=== PATIENT | female | born 1940 | race Caucasian/White ===

== ENCOUNTER 2024-10-04 10:00 | Inpatient (IN) | payer MEDICARE, SELFPAY ==
[2024-10-02 23:00] VITALS: BP 164/110
--- NOTE | 2024-10-02 23:05 | ED.CVA ---
History of Present Illness
General
Chief Complaint: CVA/TIA Symptoms
Source: patient and ambulance crew
Exam Limitations: none
Time Seen by Provider: 10/02/24 22:59
Nursing documentation reviewed up to this point in time: agreed with
Onset of Stroke Symptoms
Onset of symptoms known: Yes
Date of onset of symptoms: 10/02/24
Time of onset of symptoms: 22:00
History of Present Illness
History of Present Illness:
84 female prehospital stroke alert, she has had some indigestion for about 2 weeks, tonight watching TV at 10 PM had acute onset of right arm numbness and weakness with trouble getting her words out EMS was called found her hypertensive with
improved symptoms she states her symptoms as far as her slurred speech and arm weakness lasted about 10 or 15 minutes, when I evaluated her she clear speech moving all extremities clear mental status
Past History
Past History
ED Past Medical History: Hypothyroidism and Other (Hives)
ED Past Surgical History: Gynecological
Social History
Tobacco: Non-smoker
Personal:
Living: with family
Review of Systems
Review of Systems
All Other Systems: Not applicable
Musculoskeletal: Reports back pain
Neurological: Reports weakness, numbness and other (Speech abnormality)
Psychiatric: Reports no symptoms
Phy Exam
Physical Exam
Physical Exam:
Physical Exam
General: 84 female looks uncomfortable with normal mental status clear speech
Neck: No tongue bite no jaw
Heart: s1/s2 regular rate and rhythm, no murmur. equal radial pulses.
Lungs: no acute respiratory distress. clear bilaterally
Abdomen: Regular
Neuro: alert and oriented. no focal neurological deficits
Skin: no rash
Psychiatric: well kept. interactive and cooperative
Extremities: no edema.
Course
Orders/Labs/Results
Orders:
Orders
10/02/24 23:00
EKG [Electrocardiogram (*1)] Urgent
Reason for Study: TIA/Stroke
Electrocardiogram (*1) Stat
Reason for Study: Other
Other Reason for Exam: neuro symptoms
CT HEAD STROKE ALERT W/o Cont Urgent
Comment:
Reason For Exam: aphasia
CT HEAD/NECK ANG STROKE ALERT Urgent
Comment:
Reason For Exam: rirhg rarm apahsia
Bedside Glucose- Treatment ONCE
Cardiac Monitoring- Treatment ONCE
EKG- Treatment ONCE
EKG- Treatment ONCE
10/02/24 23:04
Complete Blood Count/With Diff Urgent
Comprehensive Metabolic Panel Urgent
Erythrocyte Sed Rate Urgent
PTT Urgent
Prothrombin Time Urgent
Troponin I Urgent
10/02/24 23:09
CT Chest Angio W/wo Iv Contras Urgent
Comment:
Reason For Exam: pian stroke like symptoms
10/02/24 23:39
Urinalysis Reflex To Culture Urgent
Date Specimen was Collected: 10/02/24
Time Specimen was Collected: 23:39
10/02/24 23:42
Labetalol HCl [Trandate] 20 mg IV NOW STA
Abnormal Lab Results
10/02/24
23:04
RBC 4.01 L 10^6/uL
(4.20-5.40)
MCV 102.7 H fL
(81.0-99.0)
MCH 35.4 H pg
(27.0-31.0)
Sodium 146 H mmol/L
(135-145)
BUN 20 H mg/dl
(7-17)
Glucose 123 H mg/dl
(70-99)
POC Glucose 111 H mg/dl
(70-99)
10/02/24 23:04
10/02/24 23:04
Vital Signs
Initial and Last Documented VS:
Initial Vital Signs
Temp Pulse Resp BP Pulse Ox
97.9 F 83 24 164/110 98
10/02/24 23:00 10/02/24 23:00 10/02/24 23:00 10/02/24 23:00 10/02/24 23:00
Last Documented Vital Signs
Temp Pulse Resp BP Pulse Ox
97.9 F 102 24 164/110 98
10/02/24 23:00 10/02/24 23:30 10/02/24 23:30 10/02/24 23:06 10/02/24 23:30
MDM/Problems Addressed
Differential Diagnosis Includes:
TIA CVA intracerebral hemorrhage hypertensive urgency thoracic dissection
MDM/Problems Addressed:
Strokelike symptoms
*Radiology
Radiology exam reviewed: other (Verbal report from vision)
*Pulse Oximetry
Patient hypoxic: no
*EKG
Interpreted by ED Provider?: Yes
Interpretation: normal
Comparison EKG: no comparison EKG present
Heart Rate: 78
Rate: normal
Rhythm: sinus
Ischemia: no ischemia
*Wood Turning Lathe Operator Interpretation
Rate: normal
Interpretation: normal
Heart Rate: 78
Rhythm: sinus
*Critical Care Note
Total Time (30-74mins, 75-104mins- exclusive of procedures): 30
Update Note
Update Note:
Update did not appear to be lytic candidate at this time due to had a stroke score of 0 she has had some subacute indigestion back pain, then acute strokelike symptoms, will check CT angio of the head neck and chest,
CRITICAL CARE STATEMENT: A total of 40 minutes of critical care time was provided for this patient. This includes management of unstable vital signs, evaluation of the patient at bedside, reviewing the patient's pertinent medical records discussion
with EMS providers and patient's family in addition to discussion with consultants, review of old EKGs and review of pertinent medical records. This time with separate from time utilized to perform the aforementioned documented procedures
1145 patient speech is clear, blood pressure is up
Will start labetalol
ED Attending Note
-
Portions of this chart may have been created with voice recognition software.� Occasional wrong word or��sound alike� substitutions may have occurred due to the inherent limitations of voice recognition software.
Discharge Plan
Departure
Patient Disposition: Admit
Date of Disposition: 10/02/24
Time of Disposition: 23:46
Admit to: Telemetry
Presentation/result/management discussed w/ accepting MD/DO: Hospitalist
Patient with high blood pressure during this ER visit?: Yes
Condition: Fair
Covid-19: Not Applicable
Discharge Problem:
Hypertensive urgency, Brain TIA
Prescriptions:
No Action
Levothyroxine Sodium
1 tab PO DAILY AT 0700
Discharge Date and Time
Print Language: NEPALI
[2024-10-02 23:06] VITALS: BP 164/110
[2024-10-02 23:06] LABS: Glucose - Point of Care 111 mg/dl (70-99)
[2024-10-02 23:07] VITALS: BMI 29.0
[2024-10-02 23:16] LABS: % Basophils 0.3 % (0-2); % Eosinophils 1.8 % (0-6); % Immature Granulocytes 0.3 % (0-0.5); % Lymphocytes 25.9 % (20.5-51.1); % Monocytes 6.6 % (1.7-9.3); % Neutrophils 65.1 % (42.2-75.2); Absolute Eosinophils 0.1 10^3/uL (0-0.7); Absolute Lymphocytes 1.6 10^3/uL (1.2-3.4); Absolute Monocytes 0.4 10^3/uL (0.1-0.6); Hematocrit 41.2 % (37.0-47.0); Hemoglobin 14.2 g/dL (12.0-16.0); Mean Corp Hgb Conc. 34.5 g/dL (33.0-37.0); Mean Corpuscular Hgb 35.4 pg (27.0-31.0); Mean Corpuscular Volume 102.7 fL (81.0-99.0); Mean Platelet Volume 9.3 fL (7.4-10.4); Nucleated Red Blood Cells % 0 %; Platelet Count 191 10^3/uL (130-400); Red Blood Cell Count 4.01 10^6/uL (4.20-5.40); Red Cell Dist. Width 13.9 % (11.5-14.5); White Blood Cell Count 6.1 10^3/uL (4.8-10.8)
[2024-10-02 23:25] LABS: INR 0.89; PT 12.3 Sec (11.4-14.6)
[2024-10-02 23:26] LABS: APTT 27.6 Sec (23.4-35.0)
[2024-10-02 23:36] LABS: ALT (SGPT) 25 U/L (0-35); AST (SGOT) 31 U/L (14-36); Albumin 4.8 g/dl (3.5-5.0); Alkaline Phosphatase 82 U/L (38-126); Blood Urea Nitrogen 20 mg/dl (7-17); Calcium 9.9 mg/dl (8.4-10.2); Carbon Dioxide 26 mmol/L (22-30); Chloride 106 mmol/L (98-107); Estimated Creatinine Clearance 49 ml/min; Glucose 123 mg/dl (70-99); Sodium 146 mmol/L (135-145); Total Bilirubin 0.9 mg/dl (0.2-1.3); eGFR > 60.00
[2024-10-02 23:40] LABS: Troponin I 0.015 ng/ml
[2024-10-02 23:51] LABS: Urine Albumin Negative (Neg - Trace); Urine Bilirubin Negative (Negative); Urine Character Clear (Clear); Urine Color Yellow; Urine Glucose Negative (Negative); Urine Ketone Negative (Negative); Urine Leukocyte 1+ (Negative); Urine Nitrite Negative (Negative); Urine Occult Blood Negative (Negative); Urine Specific Gravity 1.005 (<1.030); Urine Urobilinogen Negative (Neg - 1+)
[2024-10-02 23:55] LABS: Erythrocyte Sed Rate 24 mm/hour (0-20)
[2024-10-03] VITALS (9 sets, daily range): BP systolic 118–191; BP diastolic 61–96; BMI 28.2
[2024-10-03] MEDS: TRANDATE 20 MG IV (00:19)
[2024-10-03 00:25] LABS: Urine Bacteria Many (Negative); Urine Red Blood Cell 0-2 /HPF (0-2); Urine Squamous Cell >30 /LPF (Few)
[2024-10-03 00:26] LABS: Urine Urothelial Cell 16-20 /LPF (FEW)
--- NOTE | 2024-10-03 00:53 | HPS.HSE ---
Family Physician
-
Family Physician: Josr Perez MD
Chief Complaint
-
Right hand weakness and numbness
History of Present Illness
This is an 84-year-old was generally healthy and active with past medical history of hypothyroid and hypertension presenting to the emergency department with an acute episode of transient right weakness and numbness.
Patient reported that she had been in usual state of health except for about a 3-week history of swallowing difficulties. She was supposed to see PMD on Friday but was found not available and she was planning a follow-up visit next week for this.
Today while sitting down the patient reported that she suddenly felt numb in her right arm and she could not move it normally. She had garbled speech at that time and seemed confused. This resolved after about 10 minutes according to patient and
spouse. She still felt somewhat uneasy and uncomfortable so EMS was called when EMS arrived she was seen in normal state with no focal deficits. She complained of some headache. She states she still has mild blurry vision on the right visual
field.
While discussing with patient she mentioned that she was having chest pain at that time. Was substernal and she had difficulty breathing. She never had this kind of symptom before but she stated that due to the indigestion and difficulty
swallowing she has been having some trouble breathing. Denies pleuritic symptoms. Denies any cough fevers or chills. She denies any wheezing.
Patient reports difficulty with swallowing solids and liquids. She feels that the material gets stuck in her upper chest. She has no vomiting. She has no nausea. She reports that she is not aspirating. She does not cough up the food. It
appears to cause pain when it is stuck in the chest. She denies any prior history of any kind of malignancy. She denies any radiation. She denies history of atopy. She denies GERD. She denies any sensation of acid reflux or weakness in the back
of her throat. She has no postnasal drip.
In the emergency department the patient was hypertensive to 160s over 110s to 180s over 100, pulse ranged from 80s to 100 oxygen saturation was 96%. She was intermittently tachypneic but otherwise had a respiratory rate in the 10-15 range. ECG
shows a sinus rhythm at 81 with no changes. ECG repeated during chest pain was also completely normal and nonischemic. Troponin was 0.015. CBC was unremarkable. Electrolytes BUN/creatinine were also within normal limits. Patient had a CT of the
head as well as a CT angio which showed no acute changes, no bleed, mass effect, mass, dissection. CT Angio of neck shows a hypervascular mass in the right carotid space measuring 3.4 x 2.4 x 4 cm splaying the carotid bulb referral likely
reflecting carotid body tumor/paraganglioma. Associated marked vascularity throughout the carotid space with localized mass effect on right parapharyngeal space and narrowing of adjacent airway. There is moderate atheromatous disease of the left
carotid bulb and proximal internal carotid artery. Greater than 70% narrowing at origin of left internal carotid artery. The CT angiogram of the chest shows no mass, infiltrates, consolidation or PE.
Medical History
Past Medical History
Past Medical History: Reports HTN and Hypercholesterolemia (diet controlled)
Past Surgical History: Reports None
Social History
Tobacco: Non-smoker
Alcohol: None
Drug: None
Personal:
Living: With Family
Employment: Not Employed
Family History
Family History: Not pertinent
Allergies / Home Medications
Allergies reflects when Allergies were last updated in [employer].
Home Medications with original date entered in [employer]
Allergy/Medication List:
Allergies
Allergy/AdvReac Type Severity Reaction Status Date / Time
No Known Allergies Allergy Verified 10/02/24 23:56
Home Medications
Levothyroxine Sodium 1 tab PO DAILY AT 0700 09/11/19
losartan 50 mg tablet 50 mg PO DAILY 10/03/24
Review of Systems
-
History Source: Patient
Constitutional: Reports No Symptoms
EENT: Reports Other (Dysphagia)
Respiratory: Reports No Symptoms
Cardiac: Reports Chest Pain
Abdomen/GI: Reports No Symptoms
: Reports No Symptoms
Musculoskeletal: Reports No Symptoms
Skin: Reports No Symptoms
Neurological: Reports No Symptoms
Endocrine: Reports No Symptoms
Hematologic/Lymphatic: Reports No Symptoms
Psych: Reports No Symptoms
Physical Exam
Vital Signs
Vital Signs
Temp Pulse Resp BP Pulse Ox
97.9 F 69 26 177/83 97
10/02/24 23:00 10/03/24 00:45 10/03/24 00:45 10/03/24 00:28 10/03/24 00:15
Physical Exam
General: Well Developed, Well Nourished and Conversant
HEENT: NormoCephalic, Anicteric, Moist mucous membranes, Atraumatic, PERRLA, No Ptosis, Nose Appears Normal and Neck Nontender
Respiratory: Clear
Cardiac: S1/S2 and Regular Rhythm
Breast: Deferred by me
GI: Soft
Rectal: Brown
Genito-urinary: No costovertebral tender
Musculoskeletal: No Clubbing, No Cyanosis and No Edema
Skin: Warm
Neuro: AO x 3, No Motor Deficits, Cranial Nerves Intact and No Sensory Deficits
Hematologic/Lymphatic: No Lymphadenopathy
Psych: Calm
Laboratory Results
-
10/02/24 23:04
10/02/24 23:04
Laboratory Results
PT 12.3 Sec (11.4-14.6) 10/02/24 23:04
INR 0.89 10/02/24 23:04
APTT 27.6 Sec (23.4-35.0) 10/02/24 23:04
Total Bilirubin 0.9 mg/dl (0.2-1.3) 10/02/24 23:04
AST 31 U/L (14-36) 10/02/24 23:04
ALT 25 U/L (0-35) 10/02/24 23:04
Alkaline Phosphatase 82 U/L (38-126) 10/02/24 23:04
Troponin I 0.015 ng/ml 10/02/24 23:04
Data Reviewed
-
CT Scan: Report Reviewed by me
Medical Tests (Nuc Med, Echo, EKG etc): Image Personally Visualized and interpreted
Lab Data: Labs Reviewed by me
Old Records: Reviewed
Impression/Plan
-
IMPRESSION:
84-year-old with history of hypothyroid and hypertension presents to the emergency department with a transient episode of right arm weakness and numbness lasting about 10 minutes and completely resolved. She reports several weeks of difficulty
swallowing without chest pain or reflux symptoms but thought she had indigestion. NIHSS equals 0 at this time. She has no other focal deficits. She complains of a mild headache. She is quite hypertensive to the 180s systolic. Complains of mild
chest pressure with negative ECG and troponin. 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
airspace.
PLAN:
1. TIA/CVA - She has transient focal neurological deficit fitting TIA. She has some atherosclerotic disease on the left internal carotid as well as a right carotid paraganglioma. Cannot rule out catecholamin effect versus atherosclerosis. Given
she is symptom free would rather gather experts before starting a specific course of action.
- admit to telemetry
- labetolol prn for bp control
- mri in am to rule out a small stroke
- cardiovascular panel, holding off on aspirin for now pending neurology eval
- echo
2. 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
including dysphagia, sudden anxiety and hypertensive episode. The CT scan appears to be highly diagnostic and patient will need screening for mets, genetics screening, functionality and multi-modal intervention perhaps at outside institution
- assuming active episode, will obtain plasma and urine catecholamines and metanephrines
- Vascular surgery consult, may need neurosurgery
- endocrine consult for evaluation of catecholamine-secretion
- neurology consult
- consider oncology consult for staging if necessary per other consultants
- upper gi series for swallowing
3. Chest pain - Atypical. Negative PE, negative troponin, negative ECG. Possibly related to uncontrolled BP
- trend troponin for now
- analgesics
DVT PPX - lovenox sq
Code Status - full code
[2024-10-03 01:38] LABS: Glucose - Point of Care 121 mg/dl (70-99)
[2024-10-03 03:18] LABS: Troponin I 0.093 ng/ml
[2024-10-03 03:33] LABS: D-Dimer 0.46 ug/mlFEU (0.00-0.50)
[2024-10-03] MEDS: SYNTHROID 50 MCG PO (05:52)
[2024-10-03 06:51] LABS: Troponin I 0.116 ng/ml
[2024-10-03 06:55] LABS: HDL Cholesterol 67 mg/dl; LDL Cholesterol, Calculated 188 mg/dl; Total Cholesterol 274 mg/dl (50-199); Triglyceride 99 mg/dl (10-149); Very Low Density Lipoprotein 19 mg/dl (0-30)
[2024-10-03 07:26] LABS: TSH Reflex To Free T4 2.65 uIU/ml (0.47-4.68)
--- NOTE | 2024-10-03 08:24 | CON.NEURO ---
Neuro Assessment/Plan
Assessment
CT and CTA IMPRESSION:
1). Moderate partially calcific atherosclerotic plaque in the left carotid bifurcation is associated with approximately 65% stenosis of the left internal carotid artery at its origin and there is an approximately 70% stenosis of the M1 segment of
the left middle cerebral artery. These findings are associated with diminished flow in the M2 and M3 branches of the left middle cerebral artery when compared with the right.
2). There is 3.9 cm in maximal diameter hypervascular mass in the right carotid and parapharyngeal spaces most consistent with carotid body tumor
3). There is 3.3 cm partially calcified meningioma over the medial right parietal convexity and 1 cm partially calcified meningioma in the inferolateral right temporal lobe
Acute onset right arm send numbness with associated aphasia
Differential diagnosis includes TIA/stroke, hypertensive encephalopathy, symptomatic left internal carotid stenosis
Plan
Start ASA 81 mg by mouth due to likely acute onset stroke
Start clopidogrel 75 mg by mouth due to likely acute onset stroke, consider discontinuance after 21 days from neurological perspective
Agree with vascular surgery consultation surgical intervention of the left internal carotid artery as a symptomatic finding; may require right internal carotid artery procedure as per their decision
Initiate atorvastatin 80 mg daily, goal LDL less than 70
Monitor meningioma, unlikely to require neurosurgical intervention
Will follow peripherally.
Consultation
Order
Date of Consultation: 10/03/24
Requesting Provider: Hospitalists
Reason for Consult: Stroke alert
Subjective/Objective
Subjective Data
Date of Service: October 03, 2024
Right-Handed
'I think I had a stroke.'
Difficulty with pressure in chest for the past 2 weeks attributed with swallowing and feeling that food was stuck in her chest. Otherwise, patient has not had symptoms prior to last evening.
Patient presented to this hospital as a prehospital stroke alert last evening due to acute onset right hand and distal arm weakness with associated tremor. The patient also had an abrupt change with simultaneous gibberish, repeated, and unclear
speech. All symptoms seem to have resolved after approximately 15 minutes. No prior events. No alternative side or leg involvement. The patient current that her symptoms have improved without total resolution of right hand weakness.
Objective Data
Vital Signs
Temp Pulse Resp BP Pulse Ox
36.7 C 69 18 143/69 93
10/03/24 07:54 10/03/24 07:54 10/03/24 07:54 10/03/24 07:54 10/03/24 07:54
Lab Results
10/02/24 23:04
10/02/24 23:04
PT 12.3 Sec (11.4-14.6) 10/02/24 23:04
INR 0.89 10/02/24 23:04
APTT 27.6 Sec (23.4-35.0) 10/02/24 23:04
Sodium 146 mmol/L (135-145) H 10/02/24 23:04
Potassium 4.0 mmol/L (3.5-5.1) 10/02/24 23:04
BUN 20 mg/dl (7-17) H 10/02/24 23:04
Glucose 123 mg/dl (70-99) H 10/02/24 23:04
Calcium 9.9 mg/dl (8.4-10.2) 10/02/24 23:04
LDL Cholesterol, Calc 188 mg/dl 10/03/24 06:19
Patient Allergies
No Known Allergies Allergy (Verified 10/02/24 23:56)
CVA Assessment
Onset of Stroke Symptoms
Onset of symptoms known: Yes
Date of onset of symptoms: 10/02/24
Time of onset of symptoms: 21:00
Time pt last seen normal is known: Yes
Date last time pt seen normal: 10/02/24
Time last time pt seen normal: 21:00
NIH Stroke Score
Level of Consciousness: 0 - Alert
LOC Questions: 0-Answers both correctly
LOC Commands: 0-Performs both correctly
Best Horizontal Gaze: 0-Normal
Visual Hernandez: 0=Normal, no visual loss
Facial Palsy: 0=Normal, symmetrical
Motor - Right Arm: 1=Drift < 10 seconds
Motor - Left Arm: 0=No drift 10 seconds
Motor - Right Le-No drift 5 seconds
Motor - Left Le-No drift 5 seconds
Limb Ataxia: 0-Absent
Sensation: 0-Normal
Best Language: 0-No aphasia
Dysarthria: 0-Normal
Extinction and Inattention: 0-No abnormality
Total Score:: 1
Tenecteplase Contraindications
Inclusion and Exclusion criteria reviewed: Yes
IAT Contraindications: ASPECTS < 6
Review of Systems
-
History Source: Patient
All other systems: Reviewed and negative
Constitutional: Negative Weakness
EENT: Blurry Vision (on the right) and Swallowing Difficulty; Negative Decreased Vision
Respiratory: Negative Trouble Breathing
Cardiac: Negative Chest Pain
Abdomen/GI: Negative Incontinence of Stool
Genitourinary: Negative Incontinence
Musculoskeletal: Back Pain (chronic); Negative Neck Pain
Neuro: Headache (since 20 hours ago); Negative Dizzy
Physical Exam
-
General: No Apparent Distress and Appears Stated Age
Eyes: OU Absent Papilledema, Round OU, [place] Conjunctivae and No Ptosis
HEENT: Anicteric and Moist Mucous Membranes
Neck: Full Range of Motion
Respiratory: No Dyspnea
Cardiac: No JVD
GI: Non-distended
Skin: Unremarkable
Extremities: No Clubbing, No Cyanosis and No Edema
Psych: Negative Intact Judgement/Insight
Extended Neurological Exam
Mood & Affect: Mood Unremarkable and Affect Unremarkable
Attention Span & Concentration: Awake, Alert, Interactive and No Difficulty with 2 Step Request
Memory: Unremarkable
Tremor: Hand Tremor Absent and Head Tremor Absent
Speech: Quality Unremarkable and Quantity Unremarkable
Cranial Nerve II: Left Eye: Pupillary Reactivity Unremarkable, Pupillary Size Unremarkable and Visual Hernandez Intact
Cranial Nerve II: Right Eye: Pupillary Reactivity Unremarkable, Pupillary Size Unremarkable and Visual Hernandez Intact
Cranial Nerves III, IV, : Extraocular Movement: Extraocular Movement Full in all Directions
Cranial Nerve VII: Facial Symmetry: Normal Facial Symmetry
Cranial Nerve VIII: Hearing: Unremarkable Hearing to Normal Conversational Volume
Cranial Nerves IX, X: Palate Movement: Palate Elevation Symmetric
Cranial Nerve XI: Shoulder Shrug: Unremarkable
Cranial Nerve XII: Tongue Protusion: Midline
Muscle Strength, Overall: Full Throughout
Muscle Bulk & Tone: Bulk Unremarkable and Tone Unremarkable
Deep Tendon Reflexes: Unremarkable Throughout
Touch Sensation: Unremarkable
Coordination: [id number] Testing Unremarkable
Babinski Sign: Absent Bilaterally
Data Reviewed
-
CT-A: Report Reviewed
MRI Head: Ordered
Labs: Report Reviewed
Reviewed with: Physician, Patient and Family
Old Records: Summarized
Medications
-
Active Medications
Generic Name Dose Route Start Last Admin
Trade Name Freq PRN Reason Stop Dose Admin
Acetaminophen 650 mg 10/03/24 01:41
Acetaminophen 650 Mg Rectal Suppository RECTAL 10/31/24 01:40
Q4HPRN PRN
PRIETO, mild pain, or temp >100.4F
Acetaminophen 650 mg 10/03/24 01:41
Acetaminophen 325 Mg Tablet PO 10/31/24 01:40
Q4HPRN PRN
PRIETO, mild pain, or temp >100.4F
Enoxaparin Sodium 40 mg 10/03/24 18:00
Enoxaparin Sodium 40 Mg/0.4 Ml Syringe SC 10/31/24 17:59
QPM GENEVA
Labetalol HCl 10 mg 10/03/24 01:41
Labetalol Hcl 5 Mg/1 Ml (20 Mg/4 Ml) Injection IV 10/31/24 01:40
Q6HPRN PRN
for SBP > 180
Levothyroxine Sodium 50 mcg 10/03/24 06:00 10/03/24 05:52
Levothyroxine 50 Mcg Tablet PO 10/31/24 05:59 50 mcg
DAILY @ 0600 GENEVA Administration
Losartan Potassium 100 mg 10/03/24 08:00
Losartan 50 Mg Tablet PO 10/31/24 07:59
DAILY GENEVA
Ondansetron HCl 4 mg 10/03/24 01:41
Ondansetron 4 Mg/2 Ml Vial IV 10/31/24 01:40
Q6HPRN PRN
NAUSEA/VOMITING
Home Medications
�Medication �Instructions �Recorded
Levothyroxine Sodium 1 tab PO DAILY AT 0700 09/11/19
losartan 50 mg tablet 50 mg PO DAILY 10/03/24
Past History
Past History
ED Past Medical History: Cancer (Malignant melanoma), GERD, HTN, Hypercholesterolemia, Hypothyroidism and Other (Chronic idiopathic urticaria with angioedema 2013, COVID-19)
ED Past Surgical History: Gynecological (Hysterectomy with fibroidectomy 1986) and Other (Melanoma resection on leg 2008)
Social History
Tobacco: Non-smoker
Personal:
Living: with family
Family History
Family History: Other (Reviewed and noncontributory)
[2024-10-03] MEDS: ATIVAN 1 MG PO (09:21)
[2024-10-03] MEDS: PLAVIX 75 MG PO (09:38)
[2024-10-03] MEDS: ASPIR LOW (ENTERIC COATED) 81 MG PO (09:38)
[2024-10-03 10:35] LABS: Erythrocyte Sed Rate 20 mm/hour (0-20)
[2024-10-03 10:55] LABS: Ferritin 20.2 ng/ml (11.1-264.0)
[2024-10-03 11:26] LABS: Folate > 20.0 ng/ml (2.76-20); Vitamin B12 < 159 pg/ml (239-931)
[2024-10-03] MEDS: COZAAR 50 MG PO (11:41)
[2024-10-03 13:06] LABS: Troponin I 0.081 ng/ml
--- NOTE | 2024-10-03 13:06 | W.PN.HOSP.TC ---
Addendum entered and electronically signed by Larry Antonio MD 10/03/24 16:16:
Adv diet; ordered barium swallow as having difficulty swallowing more than 1 sip at a time
Original Note:
Today's Communication/Plan
-
DAPT, high-dose statin
Vascular recommendations for possible CEA, carotid bulb tumor
Continue telemetry
Trend troponins
Echo
Assessment / Plan
Assessment / Plan
Physical Exam
General: Well Developed, Well Nourished and Conversant
HEENT: NormoCephalic, Anicteric, Moist mucous membranes, Atraumatic, PERRLA, No Ptosis, Nose Appears Normal and Neck Nontender
Respiratory: Clear
Cardiac: S1/S2 and Regular Rhythm
Breast: Deferred by me
GI: Soft
Rectal: Brown
Genito-urinary: No costovertebral tender
Musculoskeletal: No Clubbing, No Cyanosis and No Edema
Skin: Warm
Neuro: AO x 3, No Motor Deficits, Cranial Nerves Intact and No Sensory Deficits
Hematologic/Lymphatic: No Lymphadenopathy
Psych: Calm
#CVA
-Acute onset right arm send numbness with associated aphasia
-near 70% stenosis of the left internal carotid artery at its origin
-multiple areas of acute/subacute infarct measuring up to 3.5 cm in the left middle cerebral artery distribution suggesting embolic infarct
-ASA, plavix, statin
-cont telemetry
-ECHO
#Right Carotid Stenosis
-vascular consulted, most likely CEA
-Statin
-DAPT
#carotid body tumor
-Vascular recs
-endo and neuro recs
-upper gi series/speech eval for adjacent airway monitoring - no airway compromise
-admitted provider ordered plasma and urine catecholamines and metanephrines
#meningioma
-monitor
#Vitamin b12 deficiency
-replete
#Chest pain - Atypical. Negative PE, negative troponin, negative ECG.
-- trend troponin for now
- analgesics
-ECHO
DVT PPX - lovenox sq
Code Status - full code
Total time spent on today's encounter was 50 minutes which included time spent in counseling the patient/family regarding diagnosis and treatment plan as listed above, goals of care, and symptom management. Case was discussed with nursing staff,
specialists, and care coordinators/case management. All labs and imaging personally reviewed by me. Remainder the time spent in detailed review of previous records, lab data, imaging, and other medical provider documentation.
Anticipated Discharge: 24 - 48 hours
Subjective/Interval History
-
Date of Service: October 03, 2024
No acute events
Objective Data
-
Vital Signs:
Vital Signs
Temp Pulse Resp BP Pulse Ox
97.8 F 76 22 163/85 95
10/03/24 11:42 10/03/24 11:42 10/03/24 11:42 10/03/24 11:42 10/03/24 11:42
I&O
10/02/24 10/03/24 10/04/24
06:59 06:59 06:59
Intake Total 240 / 240
Balance 240 / 240
Review of Systems
-
History Source: Patient
All other systems: Not reviewed unless documented
Data Reviewed
-
Diagnostic Radiology: Image personally visualized and interpreted
CT Scan: Image personally visualized and interpreted and Report Reviewed by me
MRI: Image personally visualized and interpreted
Labs: Labs Reviewed by me
[2024-10-03 13:20] LABS: Hematocrit 39.2 % (37.0-47.0); Hemoglobin 13.1 g/dL (12.0-16.0); Mean Corp Hgb Conc. 33.4 g/dL (33.0-37.0); Mean Corpuscular Hgb 35.5 pg (27.0-31.0); Mean Corpuscular Volume 106.2 fL (81.0-99.0); Mean Platelet Volume 9.9 fL (7.4-10.4); Platelet Count 203 10^3/uL (130-400); Red Blood Cell Count 3.69 10^6/uL (4.20-5.40); Red Cell Dist. Width 14.2 % (11.5-14.5); White Blood Cell Count 5.9 10^3/uL (4.8-10.8)
--- NOTE | 2024-10-03 14:18 | CM ---
CM following re: d/c planning.
CM met with pt, spouse, and daughter at bedside.
Pt reports she resides in the home with them both.
She states she is very active.
No DME or VN in the home. Pt drives.
PCP is Dr. Perez and pharmacy [facility].
Pt is listed as OBS at this time, GRAVES provided and explained.
Pt anticipated changing to IP.
CM explained role and will continue to follow for d/c needs.
[2024-10-03] MEDS: CYANOCOBALAMIN 1000 MCG IM (14:21)
--- NOTE | 2024-10-03 15:03 | PTOTSP ---
ST Acute Care Evaluations
Baseline Information:
- Pt lives at home with her and daughter.
- Pt is very active at baseline: she [place], gardens, takes a senior fitness class weekly.
- Pt is independent with driving, cooking, cleaning, grocery shopping, and medication management (has a good system).
- Pt's manages finances.
- Pt denies any baseline receptive, expressive, or cognitive communication issues.
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
- Denies any hearing difficulties at baseline; wears progressive glasses.
Clinical Observations:
- Pt's speech is clear, fully intelligible, and fluent. Pt reports that her speech clarity has returned 100%.
- Pt appears to be able to comprehend all questions asked of her and is able to express herself with minimal issues.
- Pt reports still having occasional word-finding difficulties from time to time.
Pt currently presents with clinical signs of mild pharyngoesophageal dysphagia characterized by audible swallow, audible aerophagia, piecemeal deglutition, and persistent eructation possibly 2/2 carotid body tumor/paraganglioma with localized mass
effect on R parapharyngeal space and narrowing of adjacent airway vs acute CVA vs underlying esophageal dysfunction.
Pt also currently presenting with mild motor speech deficits, mild anomia (self-reported, not observed on objective testing or subjective observations), and mild to moderate receptive language deficits 2/2 acute L MCA CVA.
Recommendations:
- Initiate PO diet of REGULAR SOLIDS and THIN LIQUIDS; meds as tolerated.
- Aspiration and reflux precautions: Fully awake, alert, and upright for all PO intake; upright for 60 minutes after PO intake; alternate solids/liquids; one sip at a time; belch as needed.
- Consider GI consult re: GERD meds and/or barium swallow - pt's discomfort is primarily in sternal region, indicative of esophageal involvement.
- SHELF FILLER to f/u re: diet tolerance and to determine if an instrumental swallow study is warranted pre- or post- any head/neck vascular intervention.
- SHELF FILLER to f/u re: tx for speech/language deficits. Would recommend a cognitive linguistic screener for comprehensiveness.
- Pt will benefit from OP SHELF FILLER services upon d/c.
[2024-10-03] MEDS: LIPITOR 80 MG PO (17:24)
[2024-10-03] MEDS: LOVENOX 40 MG SC (17:24)
[2024-10-03 19:21] LABS: Troponin I 0.068 ng/ml
[2024-10-03] MEDS: MELATONIN 5 MG PO (20:46)
[2024-10-04 00:59] LABS: Troponin I 0.054 ng/ml
[2024-10-04 03:11] VITALS: BP 106/58
[2024-10-04] MEDS: SYNTHROID PO (05:36)
[2024-10-04 06:41] LABS: APTT 27.5 Sec (23.4-35.0); PT 13.6 Sec (11.4-14.6)
[2024-10-04 06:43] LABS: Hematocrit 39.8 % (37.0-47.0); Hemoglobin 13.2 g/dL (12.0-16.0); Mean Corp Hgb Conc. 33.2 g/dL (33.0-37.0); Mean Corpuscular Hgb 35.3 pg (27.0-31.0); Mean Corpuscular Volume 106.4 fL (81.0-99.0); Mean Platelet Volume 9.7 fL (7.4-10.4); Platelet Count 183 10^3/uL (130-400); Red Blood Cell Count 3.74 10^6/uL (4.20-5.40); Red Cell Dist. Width 14.3 % (11.5-14.5); White Blood Cell Count 5.4 10^3/uL (4.8-10.8)
[2024-10-04 06:59] LABS: ALT (SGPT) 20 U/L (0-35); AST (SGOT) 24 U/L (14-36); Albumin 3.9 g/dl (3.5-5.0); Alkaline Phosphatase 63 U/L (38-126); Blood Urea Nitrogen 13 mg/dl (7-17); Calcium 9.6 mg/dl (8.4-10.2); Carbon Dioxide 26 mmol/L (22-30); Chloride 105 mmol/L (98-107); Estimated Creatinine Clearance 55 ml/min; Glucose 99 mg/dl (70-99); Potassium 4.4 mmol/L (3.5-5.1); Sodium 142 mmol/L (135-145); Total Bilirubin 1.1 mg/dl (0.2-1.3); Total Protein 6.5 g/dl (6.3-8.2); eGFR > 60.00
[2024-10-04 07:25] VITALS: BP 149/78
[2024-10-04] MEDS: ASPIR LOW (ENTERIC COATED) PO (08:57)
[2024-10-04] MEDS: PLAVIX PO (08:57)
[2024-10-04] MEDS: COZAAR PO (08:57)
[2024-10-04 11:02] VITALS: BP 136/84
[2024-10-04] MEDS: CYANOCOBALAMIN 1000 MCG IM (11:04)
--- NOTE | 2024-10-04 12:04 | CM ---
Patient seen at bedside with and children. Patient now INP status and awaiting further medical treatment/testing per patient children. CM will continue to follow for discharge planning needs.
Plan; home with VN vs SNF pending functional needs closer to discharge.
--- NOTE | 2024-10-04 12:27 | CON.VAS ---
Addendum entered and electronically signed by Celso Cast MD 10/04/24 15:48:
Addendum to below - under #1 the last portion was cut off 'risks of procedure (CEA) including but not limited to bleeding, infection, cardiac complications/HI, cranial nerve injury, stroke all discussed and she understands all and wishes to proceed.
HOWEVER- need to clarify re: left carotid body tumor - because that would complicate standard L carotid revasc.'
Addendum entered and electronically signed by Celso Cast MD 10/04/24 15:42:
Seen and examined with MONIQUE Becerra. Agree with findings as noted below. 84-year-old female who as noted below developed acute onset of right upper extremity weakness and speech dysarthria or expressive aphasia. Lasted for about 10 to 15 minutes. Now
notes no residual symptoms. No prior symptoms or subsequent symptoms as such. Denies any amaurosis type symptoms and around this time. No family history of carotid body tumors. She denies any exposure to high altitude. No other paraganglioma
type tumors that she is aware of. On exam/she is awake and alert. Head is normocephalic and atraumatic. Eyes are anicteric. Neck is soft without jugular venous distention. Possible palpable neck mass right neck (not clearly a positive
Luisa's sign).. Breathing is unlabored. Neurologically moves all extremities with good strength currently.
CT angiogram reviewed. Heavily vascularized right carotid body tumor. Hypervascularity extends all the way down the extent of the common carotid, and along the internal carotid into the intracranial portion.
Plan/
1) Symptomatic carotid stenosis Left Carotid: Significant left proximal internal carotid artery stenosis with soft plaque elements. Generally would recommend left carotid revascularization with endarterectomy versus TCAR. Discussed both procedures
extensively with her. Discussed all else being equal I would favor endarterectomy. Discussed procedural aspects. Discussed anticipated outcomes. Discussed risks as well including but not limited to bleeding, infection, cardiac complication/HI,
cranial nerve injury, stroke. She understands all wishes to proceed with left carotid endarterectomy. Would favor awaiting at least 48 hours given recent stroke. In addition need to clarify below (see #2 below). I am not convinced that there is
not a left sided carotid body tumor as well. See image 390 through 407 series 402. Will discuss with radiologist. In addition need to have cardiology evaluation. Risks of procedure
2) Right carotid body tumor. The main tumor itself is focused or centered around the carotid bifurcation as it typically is. However there is hypervascularity throughout as I noted abvoe. From a [place] classification perspective, the tumor
itself does not seem to wrap around the internal carotid artery, and therefore likely represents a [place] class I tumor. However I think based on this hypervascularity the tumor actually extends into the intracranial segment. See CAT scan images
to 280-77 on series 402. Recommend endocrinology evaluation. Recommend evaluating whether this is a secreting tumor or not. Need to send urine catecholamines (24-hour). Consider imaging abdomen/pelvis for any concomitant pheochromocytoma or
other paraganglioma.
Original Note:
Consultation
Consultation Request
Date/Time Consultation Performed: 10/04/24 1530
Requesting Provider: Hospitalist
Performing Provider: Adriana Becerra, [employer]UT[employer] REPRESENTATIVE-C for Celso Cast MD
Reason for Consultation: Left carotid stenosis following stroke
Medical History
-
Chief Complaint: Right upper extremity weakness and paresthesia
History of Present Illness:
This is an 84-year-old right handed female with significant past medical history for hypertension, hypercholesterolemia, and hypothyroidism who presented to [place] ED on 10/03/2024 with reports of acute onset of right upper extremity weakness,
paresthesia, garbled speech, and confusion lasting roughly 10-15 minutes. Patient endorses she is now at baseline neurological status and offers no complaints. However, she does note experiencing dysphagia on and off prior to stroke and severely
directly after stroke incident occurred. However currently she feels dysphagia is resolved. MRI obtained on 10/03/24 demonstrated multiple areas of acute/subacute infarct measuring up to 3.5 cm in the left middle cerebral artery distribution. CTA
head and neck on 10/03/24 demonstrates, an approximately 65% stenosis of the left internal carotid artery at its origin; prompting vascular surgical consultation. Patient denies significant past medical history of vascular surgical intervention or
evaluation by vascular surgeon. Denies prior history of stroke. Denies past social history of smoking.
Past Medical History
Past Medical History: HTN, Hypercholesterolemia and Hypothyroidism
Past Surgical History: None
Social History
Tobacco: Non-Smoker
Alcohol: None
Drug: None
Personal:
Living: With Family
Allergies / Home Medications
Allergy/AdvReac Type Severity Reaction Status Date / Time
No Known Allergies Allergy Verified 10/02/24 23:56
�Medication �Instructions �Recorded �Confirmed �Type
Levothyroxine Sodium 1 tab PO DAILY AT 0700 Thyroid 09/11/19 10/03/24 History
losartan 50 mg tablet 50 mg PO DAILY Blood Pressure 10/03/24 10/03/24 History
Review of Systems
-
History Source: Patient
Constitutional: Reports No Symptoms
EENT: Reports No Symptoms
Respiratory: Reports No Symptoms
Cardiac: Reports No Symptoms
Abdomen/GI: Reports No Symptoms
: Reports No Symptoms
Musculoskeletal: Reports Other (Right upper extremity weakness and paresthesia)
Skin: Reports No Symptoms
Neurological: Reports Headache and Other (Garbled speech and confusion)
Endocrine: Reports No Symptoms
Physical Exam
Vital Signs
Temp Pulse Resp BP Pulse Ox
97.9 F 79 18 136/84 96
10/04/24 11:02 10/04/24 11:02 10/04/24 11:02 10/04/24 11:02 10/04/24 11:02
Lab Results
10/04/24 05:49
10/04/24 05:49
Troponin I 0.040 ng/ml H* D 10/04/24 05:49
Physical Exam
General: No Apparent Distress
HEENT: Normocephalic, Anicteric and Atraumatic
Respiratory: Non Labored Respirations
Cardiac: Negative JVD
GI: Soft, Non Tender and Non Distended
Musculoskeletal: No Edema
Skin: Warm
Neuro: AO x 3, No Motor Deficits and Nonfocal/Grossly Intact
Assessment / Plan
-
Assessment: 84 year old female with symptomatic left carotid artery stenosis with incidental finding of right carotid body tumor
Plan:
Recommend LEFT carotid endarterectomy will review with neurology for timing considering 10/06/24 or 10/07/24
Given positive troponin will ask cardiology to evaluate
Right carotid body tumor would not purse surgically at this time, given symptomatic carotid taking precedence. However, would recommend endocrinology consultation and 24 hour urine catecholamine.
[2024-10-04] MEDS: PLAVIX 75 MG PO (12:38)
[2024-10-04] MEDS: SYNTHROID 50 MCG PO (12:38)
[2024-10-04] MEDS: COZAAR 50 MG PO (12:38)
[2024-10-04] MEDS: ASPIR LOW (ENTERIC COATED) 81 MG PO (12:38)
[2024-10-04 15:36] VITALS: BP 140/87
--- NOTE | 2024-10-04 15:57 | W.PN.HOSP.TC ---
Today's Communication/Plan
-
Cardiology preop evaluation
24-hour urine metanephrine and normetanephrine
Endocrinology evaluation
Vascular planning for surgery
Assessment / Plan
Assessment / Plan
83-year-old female with CVA
MRI- 1.). There are multiple areas of acute/subacute infarct measuring up to 3.5 cm in the left middle cerebral artery distribution suggesting embolic infarct
2). There is a 5 cm heterogeneous, densely enhancing mass in the right carotid space and parapharyngeal space most consistent with carotid body tumor
3). 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
MRA- head-There is an approximately 70% stenosis of the M1 segment of the left middle cerebral artery with associated decreased flow in the M2 and 3 branches of the left middle cerebral artery when compared with the right
MRA neck-1.).There is near 70% stenosis of the left internal carotid artery at its origin
2). 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
3). The tumor is associated with medial displacement of the right internal carotid artery but there is no significant stenosis at the right carotid bifurcation or cervical portion of the right internal carotid artery
Barium swallow-unremarkable except for incidental cricopharyngeal muscle spasm
Echo 10/04/2024-LV size and systolic function. Ejection fraction 5060 to 65%. Grade 1 diastolic dysfunction. Mild MR trace TR, pulmonary artery pressure 20 to 25 mmHg, moderate AAS
CVS: S1-S2 normal, sm apex, aa
Chest: CTA B/L
Abdomen: Soft, NT
Extremities: No edema, normal pulses
GLUE MAKER BONE: Non focal exam
# CVA
Numbness and aphasia on presentation
70% stenosis of the left internal carotid artery at its origin
MRI of the brain-multiple areas of acute and subacute infarct measuring up to 3.5 cm in the left MCA suggesting embolic infarct.
On aspirin Plavix and statin
Atherosclerotic plaque in the proximal right ICA. Calcific atherosclerotic plaque in the left carotid bifurcation left ICA
Continue on telemetry
Vascular evaluation-planning carotid endarterectomy on the left side.
Request cardiology evaluation
# 5 cm heterogenous densely enhancing mass in the right carotid space and parapharyngeal space consistent with a carotid body tumor associated with medial displacement of the right internal carotid artery but no significant stenosis of the right
carotid artery bifurcation or cervical portion of the right internal carotid artery
Vascular evaluation-endocrinology evaluation recommended. 24-hour urine catecholamine. Also needs CAT scan of the abdomen and pelvis to look for Pheochromocytoma or paraganglioma.
Endocrine consulted already
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
# Chest pain-EKG without ischemia. Troponins negative
No PE ON CT
echo with no WMA
# Abnormal urine analysis patient has a lot of squamous cells. Will not treat unless symptomatic.
# Hypothyroidism-continue Synthroid
# Hypertension-continue losartan
# Vitamin B12 deficiency-replete
# DVT prophylaxis-Lovenox
# Full code
D/W Daughter at bed side
Anticipated Discharge: > 48 hours
Subjective/Interval History
-
Date of Service: October 04, 2024
Objective Data
-
Labs:
Laboratory Results
10/04/24
05:49
WBC 5.4
Hgb 13.2
Hct 39.8
Plt Count 183
PT 13.6
INR 1.00
APTT 27.5
Sodium 142
Potassium 4.4
Chloride 105
Carbon Dioxide 26
BUN 13
Creatinine 0.8
Glucose 99
Calcium 9.6
Total Bilirubin 1.1
AST 24
ALT 20
Alkaline Phosphatase 63
Vital Signs:
Vital Signs
Temp Pulse Resp BP Pulse Ox
98.4 F 84 18 140/87 92
10/04/24 15:36 10/04/24 15:36 10/04/24 15:36 10/04/24 15:36 10/04/24 15:36
I&O
10/03/24 10/04/24 10/05/24
06:59 06:59 06:59
Intake Total 240 / 240 840 / 840
Balance 240 / 240 840 / 840
--- NOTE | 2024-10-04 16:31 | CON.CAR ---
Addendum entered and electronically signed by Radha Mcfadden DO 10/04/24 17:43:
I saw and examined the patient.
The Sales Manager [employer]'s note was reviewed and I agree with the note.
Comment: Cardiology consulted for preoperative cardiac risk assessment and evaluation of abnormal cardiac troponin. She was seen and examined in with her son and family friend at bedside. Deborah has a past medical history of hyper tension and
hypothyroidism. She also has longstanding hyperlipidemia has previously refused statins. She denies prior cardiac evaluation although did have an echocardiogram in 2021 which demonstrated mild aortic stenosis. She denies tobacco history but does
occasionally smoke marijuana. 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 She also exercises at a [employer] exercise program on Mondays. For 2 weeks prior to her hospitalization she
describes an indigestion sensation not relieved with Prilosec or Tums. She describes pain after eating and a lump in her throat. She denies exertional diaphoresis, nausea/vomiting or abdominal pain. On Friday night while watching a movie with
her she had acute onset tingling in her right hand associated with weakness and dysarthria. She told her she was having a stroke. They initially tried driving to the emergency room and got lost stopping at a home where 911 was
called and EMS activated. She presented to [facility] with symptoms mostly improved. ER note states that she was having chest pain again on admission which she described as 'angina '. Blood pressures was elevated and treated with IV
labetalol. She was found to have elevated LDL 188 mg/dL now reluctantly on high intensity statin. Cardiac troponin also abnormal which peaked at 0.116. Neurology was consulted and she had head and neck imaging finding multiple areas of
acute/subacute infarct measuring 3.5 cm in the left middle cerebral artery distribution suggesting embolic infarct. There is also a 5 cm heterogeneous, densely enhancing mass in the right carotid space and parapharyngeal space consistent with a
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 The MRI of the head showed approximately 70% stenosis of the M1 segment of the left MCA and a 70% left ICA stenosis. Vascular surgery is planning a
left CEA later this week and asked cardiology for preoperative risk assessment.
General: No acute distress, AAOX3
Neck: Negative JVD
Heart: Regular, positive S1-S2. 2/6 SM
Lungs: CTA b/l, negative wheezes/rales/rhonchi
Abd: Positive BS, NT/ND, neg rebound/rigidity/guarding
Ext: Negative cyanosis/clubbing/edema
Neuro: nonfocal
Plan:
Preoperative cardiac risk assessment prior to elective left CEA for symptomatic left ICA disease
-Admit has multiple cardiac risk factors including uncontrolled hypertension, untreated hyperlipidemia, PAD with carotid artery stenosis and 2 weeks of chest pain with abnormal cardiac troponin
-Fortunately recent 2D echocardiogram shows normal heart function with no regional wall motion abnormalities. She does have moderate aortic stenosis
-No further chest pain since admission. EKG with nonspecific changes
-Continue newly started aspirin and Plavix per vascular surgery and neurology
-Continue newly started high intensity atorvastatin. Pre-statin LDL 188 mg/dL, triglycerides 99 mg/dL, HDL 67 mg/dL. Goal LDL ideally less than 70 mg/dL. Would repeat lipid profile and high intensity statin in 6 to 8 weeks as an outpatient
-Will proceed with Lexiscan nuclear stress test 10/05/2024 to further risk stratify. Study indication and details reviewed with patient and bedside family/friends; all questions answered.
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
-Continue telemetry monitoring. So far sinus rhythm without arrhythmias. Could consider outpatient cardiac monitoring
-70% stenosis of the left ICA
-Neurology and vascular surgery consulted
-Aspirin/Plavix as per neurology
-High intensity statin for goal LDL less than 70 mg/dL
Chest pain with abnormal cardiac troponins and multiple cardiovascular risk factors
-Currently chest pain-free
-Peak troponin 0.116
-Lexiscan nuclear stress test planned 10/05/2024
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
Hypertension, uncontrolled�blood pressure is better controlled. Goal normotension. Will add Toprol XL 12.5 mg daily
Hypothyroidism�continue Synthroid
Vitamin B-12 deficiency now on replacement therapy
Original Note:
Consultation
Consultation Request
Date/Time Consultation Requested: 10/04/24
Date/Time Consultation Performed: 10/04/24
Requesting Provider: Dr. Cast
Performing Provider: Dr. Mcfadden
Reason for Consultation: Elevated Troponin, preoperative risk stratification
Medical History
-
History of Present Illness:
Patient came to [facility] on Friday night with stroke symptoms and is now admitted with CVA and symptomatic left carotid lesion, cardiology has been consulted for elevated Troponin. 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 The patient recalls being very distressed and her eventually pulled over in a stranger's driveway and they were able to call 911.
Symptoms had improved upon arrival to [facility], but patient was markedly HTN at 164/110. Neurology consulted and MRI revealed a left MCA territory CVA and left carotid lesion. Patient was seen by vascular surgery and left CEA has been recommended.
Cardiology has been asked to see due to elevated Troponin. ER notes and attending notes state that patient had chest pain on admission, but she denies this to me now. Patient says that she was very stressed and angry when she and her got
lost driving to the hospital, but that her chest did not hurt. BP improved with labetalol 20 mg IV x1. Patient has a h/o HTN and takes losartan 50 mg daily at home. Troponin was 0.093 on admission and then peaked at 0.116. ECG showed nonspecific
changes. Echo without WMA. 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
PMH:
Hypothyroid
HTN
Past Medical History
Past Medical History: Other (in HPI)
Past Surgical History: Gynecological (hysterectomy)
Social History
Tobacco: Non-Smoker
Alcohol: None
Drug: None
Personal:
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
Family History
Family History: CAD and Other (son and daughter with hemochromatosis)
Allergies / Home Medications
Allergy/AdvReac Type Severity Reaction Status Date / Time
No Known Allergies Allergy Verified 10/02/24 23:56
�Medication �Instructions �Recorded �Confirmed �Type
Levothyroxine Sodium 1 tab PO DAILY AT 0700 Thyroid 09/11/19 10/03/24 History
losartan 50 mg tablet 50 mg PO DAILY Blood Pressure 10/03/24 10/03/24 History
Review of Systems
-
History Source: Patient
All other systems: Negative unless noted
Physical Exam
Vital Signs
Temp Pulse Resp BP Pulse Ox
98.4 F 84 18 140/87 92
10/04/24 15:36 10/04/24 15:36 10/04/24 15:36 10/04/24 15:36 10/04/24 15:36
GEN: NAD. AAOx3
HEENT: EOMI, MMM, wearing glasses
LUNGS: CTA B/L, no wheezes or rales
CV: Reg, S1/S2, 2/6 syst LSB
ABD: soft, BS+, NT, ND
EXT: No clubbing, cyanosis, lesions or edema B/L
NEURO: Gross non-focal
SKIN: Warm, dry and pink. No rash
Lab Results
10/04/24 05:49
10/04/24 05:49
Troponin I 0.040 ng/ml H* D 10/04/24 05:49
Impression / Plan
-
PCP: Dr. Hendrickson
Cardiology: None prior to admission
Impression:
Admitted with stroke like symptoms 10/02/24
Left MCA territory CVA by MRI 10/03/24
Symptomatic left carotid stenosis Right carotid body tumor
Elevated Troponin
Moderate by echo 10/04/24
Mild MR
Meningioma
Hypothyroid
HTN
Echo 10/04/24: EF 60-65%, mild MR, mod with peak/mean 37/20 mmHg and JEREMY 1.3 cm sq, mild MR
Plan:
-Patient came to [facility] on Friday night with stroke symptoms and is now admitted with CVA and symptomatic left carotid lesion, cardiology has been consulted for elevated Troponin. 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 The patient recalls being very distressed and her eventually pulled over in a stranger's driveway and they were able to call 911.
Symptoms had improved upon arrival to [facility], but patient was markedly HTN at 164/110. Neurology consulted and MRI revealed a left MCA territory CVA and left carotid lesion. Patient was seen by vascular surgery and left CEA has been recommended.
Cardiology has been asked to see due to elevated Troponin. ER notes and attending notes state that patient had chest pain on admission, but she denies this to me now. Patient says that she was very stressed and angry when she and her got
lost driving to the hospital, but that her chest did not hurt. BP improved with labetalol 20 mg IV x1. Patient has a h/o HTN and takes losartan 50 mg daily at home. Troponin was 0.093 on admission and then peaked at 0.116. ECG showed nonspecific
changes. Echo without WMA. 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
-Patient can complete 4 METS of activity without chest pain.--Patient now says that she is having heart burn which she also calls angina at times, she is only saying this now because her family/friend is in the room.
-Will order Lexiscan mibi for AM.
-Troponin elevation will be managed as a nonischemic myocardial injury due to HTN on admission. Recommend eventual outpatient stress test given risk factors. Patient denies chest pain. No ischemic changes on ECG.
-Echo with preserved EF and moderate . Reviewed echo findings with patient and recommended repeat echo in 1-2 years or sooner if symptoms.
-Patient with h/o HTN. Outpatient dose of losartan 50 mg daily has been continued. Will add Toprol XL 12.5 mg daily to help with HTN and PACs.
-ECG and tele reviewed by me. Patient with asymptomatic PACs.
[2024-10-04] MEDS: TOPROL XL 12.5 MG PO (17:21)
[2024-10-04] MEDS: LIPITOR 80 MG PO (17:22)
[2024-10-04] MEDS: LOVENOX SC (17:24)
[2024-10-04] MEDS: MELATONIN 5 MG PO (19:24)
[2024-10-04 19:47] VITALS: BP 157/79
[2024-10-04 23:21] VITALS: BP 139/61
[2024-10-05] VITALS (7 sets, daily range): BP systolic 121–161; BP diastolic 58–88; PULSE 81; O2SAT 96
[2024-10-05] MEDS: SYNTHROID 50 MCG PO (05:16)
[2024-10-05] MEDS: CYANOCOBALAMIN 1000 MCG IM (07:49)
[2024-10-05] MEDS: TOPROL XL 12.5 MG PO (07:49)
[2024-10-05] MEDS: COZAAR 50 MG PO (07:50)
[2024-10-05] MEDS: PLAVIX 75 MG PO (07:50)
[2024-10-05] MEDS: ASPIR LOW (ENTERIC COATED) 81 MG PO (07:50)
[2024-10-05 08:31] LABS: Hematocrit 42.5 % (37.0-47.0); Hemoglobin 14.4 g/dL (12.0-16.0); Mean Corp Hgb Conc. 33.9 g/dL (33.0-37.0); Mean Corpuscular Hgb 36.6 pg (27.0-31.0); Mean Corpuscular Volume 108.1 fL (81.0-99.0); Mean Platelet Volume 10.1 fL (7.4-10.4); Platelet Count 198 10^3/uL (130-400); Red Blood Cell Count 3.93 10^6/uL (4.20-5.40); White Blood Cell Count 5.4 10^3/uL (4.8-10.8)
[2024-10-05 09:05] LABS: ALT (SGPT) 22 U/L (0-35); AST (SGOT) 30 U/L (14-36); Albumin 4.4 g/dl (3.5-5.0); Alkaline Phosphatase 64 U/L (38-126); Blood Urea Nitrogen 12 mg/dl (7-17); Carbon Dioxide 28 mmol/L (22-30); Chloride 105 mmol/L (98-107); Estimated Creatinine Clearance 55 ml/min; Glucose 96 mg/dl (70-99); Potassium 4.6 mmol/L (3.5-5.1); Sodium 144 mmol/L (135-145); Total Bilirubin 1.2 mg/dl (0.2-1.3); Total Protein 7.2 g/dl (6.3-8.2); eGFR > 60.00
[2024-10-05] MEDS: LEXISCAN 0.4 MG IV (10:29)
--- NOTE | 2024-10-05 10:33 | CM ---
Patient out of room to testing this am. CM will return to follow for discharge planning needs.
[2024-10-05] MEDS: AMINOPHYLLINE 75 MG IV (11:30)
--- NOTE | 2024-10-05 11:53 | PTCARENOTE ---
Pt tolerated LexiScan stress test. Pt given Lexiscan 0.4mg and Aminophyline 75 mg IV for procedure. Pt denies chest pain, denies SOB, denies headache. Report called to Li on . Refer to Cardiac Services Monitoring Record for full
details and assessment. Awaiting scanner at present.
--- NOTE | 2024-10-05 13:02 | PTCARENOTE ---
Pt returned to the floor from her stress test. Pt is a+ox3, in no distress or pain. NO dizziness or SOB. Walked to the bathroom and back to her bed without incident
--- NOTE | 2024-10-05 13:19 | W.PN.CARDCBS ---
Addendum entered and electronically signed by Boris Deshpande MD 10/05/24 16:07:
I saw and examined the patient.
The Security Incident Response Specialist's note was reviewed and I agree with the note.
Comment:
GEN: No distress, awake, Ox3
HEENT: supple, anicteric, mmm
LUNGS: CTA, no wheezes/rales
CV: Reg, S1/S2, 1/6 syst LSB, no gallop
ABD: soft, BS+, NT/ND
EXT: No edema
NEURO: Gross non-focal
SKIN: No rash
Plan:
Lexiscan with moderate inferior defect with no clear ischemia. EF 56%
OK for carotid endarterectomy. Continue aspirin, Plavix, atorvastatin.
Switch to Labetalol 200mg po bid.
? mass in Right carotid neuroendocrine tumor.
Endocrine eval.
Original Note:
Today's Communication / Plan
-
Lexiscan stress test results pending
Will increase Toprol XL to 25 mg daily
Impression / Plan
-
PCP: Dr. Hendrickson
Cardiology: None prior to admission
Impression:
Admitted with stroke like symptoms 10/02/24
Left MCA territory CVA by MRI 10/03/24
Symptomatic left carotid stenosis Right carotid body tumor
Elevated Troponin
Moderate by echo 10/04/24
Mild MR
Meningioma
Hypothyroid
HTN
Echo 10/04/24: EF 60-65%, mild MR, mod with peak/mean 37/20 mmHg and JEREMY 1.3 cm sq, mild MR
Lexiscan mibi 10/05/24: Report pending
Plan:
-Patient initially denied chest pain at time of consult on 10/04/24, but later when family was in the room the patient admitted to chest pain. Patient was recommended Lexiscan mibi prior to CEA, Lexiscan report pending 10/05/24.
-Troponin elevation will be managed as a nonischemic myocardial injury due to HTN on admission for now. No ischemic changes on ECG.
-Echo with preserved EF and moderate . Reviewed echo findings with patient and recommended repeat echo in 1-2 years or sooner if symptoms.
-Patient with h/o HTN. Outpatient dose of losartan 50 mg daily has been continued. Added Toprol XL 12.5 mg daily to help with HTN and PACs.
-BP remains elevated, will increase Toprol XL to 25 mg daily.
-ECG and tele reviewed by me. Patient with asymptomatic PACs.
HPI: Patient came to [facility] on Friday night with stroke symptoms and is now admitted with CVA and symptomatic left carotid lesion, cardiology has been consulted for elevated Troponin. 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 The patient recalls being very distressed and her eventually pulled over in a stranger's driveway and they were able to call 911.
Symptoms had improved upon arrival to [facility], but patient was markedly HTN at 164/110. Neurology consulted and MRI revealed a left MCA territory CVA and left carotid lesion. Patient was seen by vascular surgery and left CEA has been recommended.
Cardiology has been asked to see due to elevated Troponin. ER notes and attending notes state that patient had chest pain on admission, but she denies this to me now. Patient says that she was very stressed and angry when she and her got
lost driving to the hospital, but that her chest did not hurt. BP improved with labetalol 20 mg IV x1. Patient has a h/o HTN and takes losartan 50 mg daily at home. Troponin was 0.093 on admission and then peaked at 0.116. ECG showed nonspecific
changes. Echo without WMA. 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
Progress Note - [employer]
Subjective
Date of Service: October 05, 2024
Feels well, awaiting stress test results
Objective
Labs:
10/05/24 07:27
10/05/24 07:27
Labs
Hgb 14.4 g/dL (12.0-16.0) 10/05/24 07:27
Hct 42.5 % (37.0-47.0) 10/05/24 07:27
Plt Count 198 10^3/uL (130-400) 10/05/24 07:27
PT 13.6 Sec (11.4-14.6) 10/04/24 05:49
INR 1.00 10/04/24 05:49
APTT 27.5 Sec (23.4-35.0) 10/04/24 05:49
Sodium 144 mmol/L (135-145) 10/05/24 07:27
Potassium 4.6 mmol/L (3.5-5.1) 10/05/24 07:27
BUN 12 mg/dl (7-17) 10/05/24 07:27
Creatinine 0.8 mg/dL (0.6-1.0) 10/05/24 07:27
Glucose 96 mg/dl (70-99) 10/05/24 07:27
Troponins
10/02/24 10/03/24 10/03/24
23:04 02:40 05:41
Troponin I 0.015 0.093 H* D Cancelled
10/03/24 10/03/24 10/03/24
06:19 12:08 13:45
Troponin I 0.116 H* 0.081 H* D Cancelled
10/03/24 10/03/24 10/04/24
18:40 19:45 00:27
Troponin I 0.068 H* Cancelled 0.054 H*
10/04/24
05:49
Troponin I 0.040 H* D
Vital Signs and I&O:
Vital Signs
Temp Pulse Resp BP Pulse Ox
97.3 F 76 18 161/88 96
10/05/24 13:12 10/05/24 13:12 10/05/24 13:12 10/05/24 13:12 10/05/24 13:12
Vital Signs
Temp Pulse Resp BP Pulse Ox
97.3 F 76 18 161/88 96
10/05/24 13:12 10/05/24 13:12 10/05/24 13:12 10/05/24 13:12 10/05/24 13:12
Intake & Output
10/03/24 10/04/24 10/05/24 10/06/24
06:59 06:59 06:59 06:59
Intake Total 240 / 240 840 / 840 720 / 720
Balance 240 / 240 840 / 840 720 / 720
Physical Exam
Physical Exam
GEN: NAD. AAOx3
HEENT: MMM
LUNGS: No audible wheeze
CV: SR on tele
ABD: ND
EXT: No edema B/L
NEURO: Gross non-focal
SKIN: No rash
--- NOTE | 2024-10-05 14:55 | W.PN.HOSP.TC ---
Today's Communication/Plan
-
Vascular considering surgery
Switch metoprolol to labetalol
CT abdomen pelvis
Assessment / Plan
Assessment / Plan
83-year-old female with CVA
MRI- 1.). There are multiple areas of acute/subacute infarct measuring up to 3.5 cm in the left middle cerebral artery distribution suggesting embolic infarct
2). There is a 5 cm heterogeneous, densely enhancing mass in the right carotid space and parapharyngeal space most consistent with carotid body tumor
3). 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
MRA- head-There is an approximately 70% stenosis of the M1 segment of the left middle cerebral artery with associated decreased flow in the M2 and 3 branches of the left middle cerebral artery when compared with the right
MRA neck-1.).There is near 70% stenosis of the left internal carotid artery at its origin
2). 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
3). The tumor is associated with medial displacement of the right internal carotid artery but there is no significant stenosis at the right carotid bifurcation or cervical portion of the right internal carotid artery
Barium swallow-unremarkable except for incidental cricopharyngeal muscle spasm
Echo 10/04/2024-LV size and systolic function. Ejection fraction 5060 to 65%. Grade 1 diastolic dysfunction. Mild MR trace TR, pulmonary artery pressure 20 to 25 mmHg, moderate AAS
CVS: S1-S2 normal, sm apex, aa
Chest: CTA B/L
Abdomen: Soft, NT
Extremities: No edema
no neuro deficits
# CVA
Numbness and aphasia on presentation
70% stenosis of the left internal carotid artery at its origin
MRI of the brain-multiple areas of acute and subacute infarct measuring up to 3.5 cm in the left MCA suggesting embolic infarct.
On aspirin Plavix and statin
Atherosclerotic plaque in the proximal right ICA. Calcific atherosclerotic plaque in the left carotid bifurcation left ICA
Continue on telemetry
Vascular evaluation-planning carotid endarterectomy on the left side.
Stress test with no reversible ischemia. Moderate risk for procedure
# 5 cm heterogenous densely enhancing mass in the right carotid space and parapharyngeal space consistent with a carotid body tumor associated with medial displacement of the right internal carotid artery but no significant stenosis of the right
carotid artery bifurcation or cervical portion of the right internal carotid artery
Vascular evaluation-endocrinology evaluation recommended. 24-hour urine catecholamine.
BP not well controlled , will change to Labetalol if OK with cards
Messaged Endocrine.
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
# Chest pain-EKG without ischemia. Troponins negative/No PE ON CT/Echo with no WMA/Stress neg for reversible ischemia
# Abnormal urine analysis patient has a lot of squamous cells. Will not treat unless symptomatic.
# Hypothyroidism-continue Synthroid
# Hypertension-continue losartan
# Vitamin B12 deficiency-replete
# DVT prophylaxis-Lovenox
# Full code
D/W family at bed side
Left message for endocrine
CT A/P Ordered
Anticipated Discharge: > 48 hours
Subjective/Interval History
-
Date of Service: October 05, 2024
Objective Data
-
Labs:
Laboratory Results
10/05/24
07:27
WBC 5.4
Hgb 14.4
Hct 42.5
Plt Count 198
Sodium 144
Potassium 4.6
Chloride 105
Carbon Dioxide 28
BUN 12
Creatinine 0.8
Glucose 96
Calcium 10.0
Total Bilirubin 1.2
AST 30
ALT 22
Alkaline Phosphatase 64
Vital Signs:
Vital Signs
Temp Pulse Resp BP Pulse Ox
97.3 F 76 18 161/88 96
10/05/24 13:12 10/05/24 13:12 10/05/24 13:12 10/05/24 13:12 10/05/24 13:12
I&O
10/04/24 10/05/24 10/06/24
06:59 06:59 06:59
Intake Total 840 / 840 720 / 720
Balance 840 / 840 720 / 720
--- NOTE | 2024-10-05 16:03 | W.PN.UPDATE ---
Update Note
Progress Note Update
Spoke to endocrine. Wait till we get the results of the plasma metanephrine and normetanephrine to get CT abdomen and pelvis. Therefore canceled. Please reach back to endocrine once we get the results of the above.
[2024-10-05] MEDS: COLACE 100 MG PO ×2 (16:28→20:19)
[2024-10-05] MEDS: MIRALAX 17 GRAMS PO (16:28)
[2024-10-05] MEDS: SENOKOT 8.6 MG PO (16:28)
[2024-10-05] MEDS: LOVENOX SC (17:25)
[2024-10-05] MEDS: LIPITOR 80 MG PO (17:25)
[2024-10-05] MEDS: MELATONIN 5 MG PO (20:18)
[2024-10-05] MEDS: TRANDATE 200 MG PO (20:19)
[2024-10-06] VITALS (7 sets, daily range): BP systolic 101–118; BP diastolic 48–67
[2024-10-06] MEDS: SYNTHROID 50 MCG PO (06:12)
[2024-10-06 08:34] LABS: ALT (SGPT) 20 U/L (0-35); AST (SGOT) 25 U/L (14-36); Albumin 4.2 g/dl (3.5-5.0); Alkaline Phosphatase 68 U/L (38-126); Blood Urea Nitrogen 17 mg/dl (7-17); Calcium 9.9 mg/dl (8.4-10.2); Carbon Dioxide 27 mmol/L (22-30); Chloride 104 mmol/L (98-107); Estimated Creatinine Clearance 49 ml/min; Glucose 115 mg/dl (70-99); Potassium 4.7 mmol/L (3.5-5.1); Sodium 141 mmol/L (135-145); Total Protein 6.9 g/dl (6.3-8.2); eGFR > 60.00
--- NOTE | 2024-10-06 08:49 | W.PN.VS ---
Addendum entered and electronically signed by Celso Cast MD 10/06/24 09:58:
Seen and examined with MONIQUE Becerra. Agree with findings as noted below. I extensively discussed with her after reviewing her imaging, I am not convinced that there is not a early/small carotid body tumor in the left neck. Regardless there is
hypervascularity there. I think this would pose increased risk for surgical revascularization of the symptomatic left carotid artery stenosis. Therefore I discussed with her instead I recommendation for left TCAR. This would avoid that area
altogether. And would not preclude surgical correction of a carotid body tumor if it exists in the future. Discussed with her procedure extensively as well as technical aspects, anticipated outcomes and recovery. Discussed risks and occluding but
not limited to bleeding, infection, cardiac complication/VA, cranial nerve injury, stroke (2 to 3% in the symptomatic setting). She understands all wishes to proceed.
Original Note:
Today's Communication / Plan
-
Patient seen and examined at bedside with Dr. Celso Cast, below plan reviewed with attending.
Assessment/Plan
-
Assessment: 84-year-old female with left symptomatic carotid stenosis status post left hemispheric stroke with incidental finding of right carotid body tumor
Plan:
Will tentatively plan for TCAR tomorrow 10/07/2024, please continue Plavix 75 mg p.o. daily, however waiting for official clearance from cardiology and endocrinology before proceeding.
Subjective Data
-
Date of Service: October 06, 2024
Patient seen at bedside, offers no complaints.
Objective Data
-
Vital Signs
Temp Pulse Resp BP Pulse Ox
98.7 F 81 18 104/60 98
10/06/24 07:12 10/06/24 07:12 10/06/24 07:12 10/06/24 07:12 10/06/24 07:12
Intake and Output
10/05/24 10/06/24 10/07/24
06:59 06:59 06:59
Intake Total 720 / 720 480 / 480
Output Total 100 / 100
Balance 720 / 720 380 / 380
Intake:
Oral fluids 720 / 720 480 / 480
Output:
Urine, Voided 100 / 100
Other:
Number of approximated MODERATE 2 1
amounts of urine
Lab Results
10/06/24 07:28
Calcium 9.9 mg/dl (8.4-10.2) 10/06/24:
Total Bilirubin 1.0 mg/dl (0.2-1.3) 10/06/24:
AST 25 U/L (14-36) 10/06/24:
ALT 20 U/L (0-35) 10/06/24:28
Alkaline Phosphatase 68 U/L (38-126) 10/06/24:
Total Protein 6.9 g/dl (6.3-8.2) 10/06/24:28
Albumin 4.2 g/dl (3.5-5.0) 10/06/24 07:
Physical Exam
-
No apparent distress, resting in bed comfortably
No tachycardia
No dyspnea on room air
[2024-10-06 08:52] LABS: Hematocrit 39.8 % (37.0-47.0); Hemoglobin 13.4 g/dL (12.0-16.0); Mean Corp Hgb Conc. 33.7 g/dL (33.0-37.0); Mean Corpuscular Hgb 35.4 pg (27.0-31.0); Mean Platelet Volume 9.9 fL (7.4-10.4); Platelet Count 196 10^3/uL (130-400); Red Blood Cell Count 3.79 10^6/uL (4.20-5.40); White Blood Cell Count 6.3 10^3/uL (4.8-10.8)
[2024-10-06] MEDS: MIRALAX 17 GRAMS PO (08:56)
[2024-10-06] MEDS: TRANDATE 200 MG PO ×2 (08:56→21:18)
[2024-10-06] MEDS: COLACE 100 MG PO (08:56)
[2024-10-06] MEDS: ASPIR LOW (ENTERIC COATED) 81 MG PO (08:56)
[2024-10-06] MEDS: PLAVIX 75 MG PO (08:57)
[2024-10-06] MEDS: COZAAR 50 MG PO (08:57)
--- NOTE | 2024-10-06 10:22 | W.PN.UPDATE ---
Update Note
Progress Note Update
Note patient has a symptomatic left carotid artery stenosis. Generally we recommend relatively expeditious revascularization in the setting for stroke prevention. She is neurologically stable and has been 48 hours or so since her stroke, and
therefore should be stable. However given her endocrine issues there is some concern. I did speak to Dr. Hernández from endocrine. Discussed relative expeditious need for revascularization. Discussed plan for left TCAR. We will proceed with
CT scan of the abdomen/pelvis with and without IV contrast in order to assess for pheochromocytoma. If that is negative, then we will plan potentially on proceeding tomorrow as planned (hopefully plasma metanephrines will be back by then as well).
--- NOTE | 2024-10-06 10:31 | W.PN.HOSP.TC ---
Today's Communication/Plan
-
CT A/P
F/U Plasma Metanephrines
Appreciate Vascular, Cardiology, Endocrinology, Neurology
Asa/Plavix/Statin
Assessment / Plan
Assessment / Plan
83-year-old female with CVA
MRI- 1.). There are multiple areas of acute/subacute infarct measuring up to 3.5 cm in the left middle cerebral artery distribution suggesting embolic infarct
2). There is a 5 cm heterogeneous, densely enhancing mass in the right carotid space and parapharyngeal space most consistent with carotid body tumor
3). 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
MRA- head-There is an approximately 70% stenosis of the M1 segment of the left middle cerebral artery with associated decreased flow in the M2 and 3 branches of the left middle cerebral artery when compared with the right
MRA neck-1.).There is near 70% stenosis of the left internal carotid artery at its origin
2). 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
3). The tumor is associated with medial displacement of the right internal carotid artery but there is no significant stenosis at the right carotid bifurcation or cervical portion of the right internal carotid artery
Barium swallow-unremarkable except for incidental cricopharyngeal muscle spasm
Echo 10/04/2024-LV size and systolic function. Ejection fraction 5060 to 65%. Grade 1 diastolic dysfunction. Mild MR trace TR, pulmonary artery pressure 20 to 25 mmHg, moderate AAS
CVS: S1-S2 normal, sm apex, aa
Chest: CTA B/L
Abdomen: Soft, NT
Extremities: No edema
no neuro deficits
# CVA
Numbness and aphasia on presentation
70% stenosis of the left internal carotid artery at its origin; Atherosclerotic plaque in the proximal right ICA. Calcific atherosclerotic plaque in the left carotid bifurcation left ICA
MRI of the brain-multiple areas of acute and subacute infarct measuring up to 3.5 cm in the left MCA suggesting embolic infarct.
On aspirin Plavix and statin
Continue on telemetry
Vascular evaluation-planning carotid endarterectomy on the left side.
Stress test with no reversible ischemia. Moderate risk for procedure - seen by cardiology for clearance
# 5 cm heterogenous densely enhancing mass in the right carotid space and parapharyngeal space consistent with a carotid body tumor associated with medial displacement of the right internal carotid artery but no significant stenosis of the right
carotid artery bifurcation or cervical portion of the right internal carotid artery
Appreciate Endocrinology - will need clearance pre surgery
plasma metanephrines pending
BID Labetalol
CT A/P today
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
# Chest pain-EKG without ischemia. Troponins negative/No PE ON CT/Echo with no WMA/Stress neg for reversible ischemia
# Abnormal urine analysis patient has a lot of squamous cells. Will not treat unless symptomatic.
# Hypothyroidism-continue Synthroid
# Hypertension-continue losartan
# Vitamin B12 deficiency-replete
# DVT prophylaxis-Lovenox
# Full code
51 minutes spent on patient care
Anticipated Discharge: > 48 hours
Subjective/Interval History
-
Date of Service: October 06, 2024
feels speech has improved
ate breakfast okay
denies weakness
Objective Data
-
Labs:
Laboratory Results
10/06/24
07:28
WBC 6.3
Hgb 13.4
Hct 39.8
Plt Count 196
Sodium 141
Potassium 4.7
Chloride 104
Carbon Dioxide 27
BUN 17
Creatinine 0.9
Glucose 115 H
Calcium 9.9
Total Bilirubin 1.0
AST 25
ALT 20
Alkaline Phosphatase 68
Vital Signs:
Vital Signs
Temp Pulse Resp BP Pulse Ox
98.7 F 81 18 104/60 98
10/06/24 07:12 10/06/24 07:12 10/06/24 07:12 10/06/24 08:57 10/06/24 07:12
I&O
10/05/24 10/06/24 10/07/24
06:59 06:59 06:59
Intake Total 720 / 720 480 / 480
Output Total 100 / 100
Balance 720 / 720 380 / 380
Review of Systems
-
History Source: Patient
All other systems: Reviewed and negative
Physical Exam
-
General: No Apparent Distress
HEENT: PERRLA
Respiratory: Clear to Auscultation; Negative Wheezes
Cardiac: Regular Rhythm and S1/S2
GI: Soft and Nontender
Musculoskeletal: No Edema
Skin: Warm and Dry; Negative Rash
Neuro: AO x 3 and Other (speech clear )
Psych: Calm
Data Reviewed
-
Diagnostic Radiology: Report Reviewed by me
Labs: Labs Reviewed by me
--- NOTE | 2024-10-06 10:49 | W.PN.CARDCBS ---
Addendum entered and electronically signed by Fransisco Lofton MD 10/06/24 15:29:
I saw and examined the patient.
The Telegraph Inspector's note was reviewed and I agree with the note.
Comment: Briefly, 84-year-old woman presenting with strokelike symptoms found to have left MCA territory CVA by MRI. Identified as having L carotid stenosis and plan was to proceed with TCAR while inpatient. Also found to have suspected right
carotid body tumor which is currently being worked up. Cardiology was asked to comment on her risk for L TCAR procedure.
She does not offer any cardiac complaints this morning
Recent cardiac testing reviewed
Echocardiogram shows normal LV function and moderate aortic stenosis, anesthesiology should be made aware of her valve disease
Nuclear stress test earlier this week without clear evidence of ischemia
Overall she is at elevated but not prohibitive risk to proceed with surgery from my standpoint
Agree with aspirin/Plavix and high intensity statin for treatment of CVA
Rest per Nkechi Eaton
Original Note:
Today's Communication / Plan
-
Stable to proceed with TCAR from cardiac standpoint
Impression / Plan
-
PCP: Dr. Hendrickson
Cardiology: None prior to admission
Impression:
Admitted with stroke like symptoms 10/02/24
Left MCA territory CVA by MRI 10/03/24
Symptomatic left carotid stenosis
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
Elevated Troponin
Moderate by echo 10/04/24
Mild MR
Meningioma
Hypothyroid
HTN
Echo 10/04/24: EF 60-65%, mild MR, mod with peak/mean 37/20 mmHg and JEREMY 1.3 cm sq, mild MR
Lexiscan mibi 10/05/24: Moderate-sized area of mild minimally reversible inferior perfusion defect that improved significantly with prone imaging suggesting attenuation, no significant ischemia, EF 56%
Plan:
-No significant ischemia on stress test 10/05/24
-Patient can proceed with planned carotid revascularization from a cardiac standpoint.
-Hospitalist and vascular surgery notes reviewed. Patient with right carotid mass and pending plasma metanephrine and normetanephrine results the patient will need CT abd/pelvis. Vascular surgery has concerns about possible early/small left carotid
body tumor and areas of hypervascularity so plan is now for TCAR instead of CEA. Patient reports surgery is planned for 10/07/24.
-Troponin elevation will be managed as a nonischemic myocardial injury due to HTN on admission for now based on stress test findings.
-Echo with preserved EF and moderate . Reviewed echo findings with patient and recommended repeat echo in 1-2 years or sooner if symptoms.
-Patient with h/o HTN. Outpatient dose of losartan 50 mg daily has been continued.
-Earlier this admission Toprol XL was added to BP meds, but changed to labetalol 200 mg BID on 10/05/24
-ECG and tele reviewed by me. Patient with asymptomatic PACs.
HPI: Patient came to [facility] on Friday night with stroke symptoms and is now admitted with CVA and symptomatic left carotid lesion, cardiology has been consulted for elevated Troponin. 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 The patient recalls being very distressed and her eventually pulled over in a stranger's driveway and they were able to call 911.
Symptoms had improved upon arrival to [facility], but patient was markedly HTN at 164/110. Neurology consulted and MRI revealed a left MCA territory CVA and left carotid lesion. Patient was seen by vascular surgery and left CEA has been recommended.
Cardiology has been asked to see due to elevated Troponin. ER notes and attending notes state that patient had chest pain on admission, but she denies this to me now. Patient says that she was very stressed and angry when she and her got
lost driving to the hospital, but that her chest did not hurt. BP improved with labetalol 20 mg IV x1. Patient has a h/o HTN and takes losartan 50 mg daily at home. Troponin was 0.093 on admission and then peaked at 0.116. ECG showed nonspecific
changes. Echo without WMA. 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
Subjective
Date of Service: October 06, 2024
Feels well, no palpitations, no chest pain
Objective
Labs:
10/06/24 07:28
10/06/24 07:28
Labs
Hgb 13.4 g/dL (12.0-16.0) 10/06/24 07:28
Hct 39.8 % (37.0-47.0) 10/06/24 07:28
Plt Count 196 10^3/uL (130-400) 10/06/24 07:28
PT 13.6 Sec (11.4-14.6) 10/04/24 05:49
INR 1.00 10/04/24 05:49
APTT 27.5 Sec (23.4-35.0) 10/04/24 05:49
Sodium 141 mmol/L (135-145) 10/06/24 07:28
Potassium 4.7 mmol/L (3.5-5.1) 10/06/24 07:28
BUN 17 mg/dl (7-17) 10/06/24 07:28
Creatinine 0.9 mg/dL (0.6-1.0) 10/06/24 07:28
Glucose 115 mg/dl (70-99) H 10/06/24 07:28
Troponins
10/03/24 10/03/24 10/03/24
12:08 13:45 18:40
Troponin I 0.081 H* D Cancelled 0.068 H*
10/03/24 10/04/24 10/04/24
19:45 00:27 05:49
Troponin I Cancelled 0.054 H* 0.040 H* D
Vital Signs and I&O:
Vital Signs
Temp Pulse Resp BP Pulse Ox
98.7 F 81 18 104/60 98
10/06/24 07:12 10/06/24 07:12 10/06/24 07:12 10/06/24 08:57 10/06/24 07:12
Vital Signs
Temp Pulse Resp BP Pulse Ox
98.7 F 81 18 104/60 98
10/06/24 07:12 10/06/24 07:12 10/06/24 07:12 10/06/24 08:57 10/06/24 07:12
Intake & Output
10/04/24 10/05/24 10/06/24 10/07/24
06:59 06:59 06:59 06:59
Intake Total 840 / 840 720 / 720 480 / 480
Output Total 100 / 100
Balance 840 / 840 720 / 720 380 / 380
Physical Exam
Physical Exam
GEN: NAD. AAOx3
HEENT: MMM
LUNGS: No audible wheeze
CV: SR on tele
EXT: No edema B/L
NEURO: Gross non-focal
SKIN: No rash
[2024-10-06] MEDS: CYANOCOBALAMIN 1000 MCG IM (10:59)
--- NOTE | 2024-10-06 15:21 | CM ---
Patient seen at bedside, Patient resting in room. Per chart review patient for further testing. CM will continue to follow for discharge planning.
Plan; home with VN vs SNF
--- NOTE | 2024-10-06 15:54 | CON.MD ---
Consultation - Medical
-
Pleasant 84 y.o. woman admitted with left MCA CVA. Elevated blood pressures now well controlled with labetalol. She has 70% left carotid stenosis and tentative plans are for TCAR. as an inpatient. During the course of workup noted to have carotid
body tumor on the right with unclear functionality. Both urine catecholamines and plasma metanephrines are still pending, and may take several days to return. Systolic BP now trending in the 110s. She appears well with benign exam. CT scan revealed
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 HU<10 and 68% washout. This is highly unlikely to be a pheochromocytoma. Additionally, the retroperitoneum was free of masses or LAD. There is some acuity to her planned procedural intervention, and delay poses
risk to her. Based upon her recent blood pressures managed with both alpha and beta blockade, she has fulfilled what we need to minimize her risk of an acute crisis under anesthesia. Would ensure she is adequately hydrated if decision to proceed is
made. Will follow with you, thank you.
[2024-10-06] MEDS: LIPITOR 80 MG PO (17:34)
[2024-10-06] MEDS: LOVENOX SC (17:42)
[2024-10-06] MEDS: COLACE PO (20:11)
[2024-10-06] MEDS: MELATONIN 5 MG PO (21:18)
[2024-10-07] VITALS (22 sets, daily range): BP systolic 115–164; BP diastolic 47–90
[2024-10-07] MEDS: NSS 1000 IV ×3 (00:11→18:31)
[2024-10-07] MEDS: SYNTHROID 50 MCG PO (05:03)
[2024-10-07 08:30] LABS: Hematocrit 37.4 % (37.0-47.0); Hemoglobin 12.5 g/dL (12.0-16.0); Mean Corp Hgb Conc. 33.4 g/dL (33.0-37.0); Mean Corpuscular Volume 107.8 fL (81.0-99.0); Mean Platelet Volume 10.3 fL (7.4-10.4); Platelet Count 175 10^3/uL (130-400); Red Blood Cell Count 3.47 10^6/uL (4.20-5.40)
--- NOTE | 2024-10-07 08:32 | W.PN.CARDCBS ---
Addendum entered and electronically signed by Boris Deshpande MD 10/07/24 11:50:
I saw and examined the patient.
The Patient Support Tech's note was reviewed and I agree with the note.
Comment:
GEN: No distress, awake, Ox3
HEENT: supple, anicteric, mmm
LUNGS: CTA, no wheezes/rales
CV: Reg, S1/S2, 1/6 syst LSB, no gallop
ABD: soft, BS+, NT/ND
EXT: No edema
NEURO: Gross non-focal
SKIN: No rash
PLan:
Overall stable. She is acceptable risk for TCAR today.
Lexiscan nuclear stress test with no clear ischemia.
Continue losartan and labetalol. Continue aspirin and Plavix.
Original Note:
Today's Communication / Plan
-
Plan for TCAR today 10/07
She is at elevated but not prohibitive risk from cardiac standpoint
Continue losartan, labetalol
Impression / Plan
-
PCP: Dr. Hendrickson
Cardiology: None prior to admission
Impression:
Admitted with stroke like symptoms 10/02/24
Left MCA territory CVA by MRI 10/03/24
Symptomatic left carotid stenosis
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
Elevated Troponin
Moderate by echo 10/04/24
Mild MR
Meningioma
Hypothyroid
HTN
Lexiscan mibi 10/05/24: Moderate-sized area of mild minimally reversible inferior perfusion defect that improved significantly with prone imaging suggesting attenuation, no significant ischemia, EF 56%
Echo 10/04/24: EF 60-65%, mild MR, mod with peak/mean 37/20 mmHg and JEREMY 1.3 cm sq, mild MR
Plan:
-Presented with stroke-like symptoms and found to have L MCA territory CVA by MRI 10/03/2024.
-Further imaging revealed L carotid stenosis as well as R carotid body tumor and possible early/small L carotid body tumor. Plan is for TCAR today, 10/07/2024.
-Cardiology consulted for pre-op eval. Echo 10/04 with preserved EF and moderate as noted above. Stress test without significant ischemia. Patient is at elevated but not prohibitive risk for procedure.
-Plasma metanephrine and normetanephrine results pending. 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 Await labwork results.
-Elevated troponin noted, peaking at 0.116, trending down thereafter. Will manage as nonischemic myocardial injury in the setting of HTN on admission.
-BP stable. Continue losartan and labetalol.
-Patient with h/o HTN. Outpatient dose of losartan 50 mg daily has been continued.
-Continue aspirin, plavix per neuro recommendations for CVA.
-Continue lipitor 80mg daily. LDL 188
HPI: Patient came to [facility] on Friday night with stroke symptoms and is now admitted with CVA and symptomatic left carotid lesion, cardiology has been consulted for elevated Troponin. 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, but got lost. The patient recalls being very distressed and her eventually pulled over in a stranger's driveway and they were able to call 911.
Symptoms had improved upon arrival to [facility], but patient was markedly HTN at 164/110. Neurology consulted and MRI revealed a left MCA territory CVA and left carotid lesion. Patient was seen by vascular surgery and left CEA has been recommended.
Cardiology has been asked to see due to elevated Troponin. ER notes and attending notes state that patient had chest pain on admission, but she denies this to me now. Patient says that she was very stressed and angry when she and her got
lost driving to the hospital, but that her chest did not hurt. BP improved with labetalol 20 mg IV x1. Patient has a h/o HTN and takes losartan 50 mg daily at home. Troponin was 0.093 on admission and then peaked at 0.116. ECG showed nonspecific
changes. Echo without WMA. 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
Subjective
Date of Service: October 07, 2024
No current cardiac complaints.
Objective
Labs:
10/07/24 07:11
Labs
Hgb 12.5 g/dL (12.0-16.0) 10/07/24 07:11
Hct 37.4 % (37.0-47.0) 10/07/24 07:11
Plt Count 175 10^3/uL (130-400) 10/07/24 07:11
PT 13.6 Sec (11.4-14.6) 10/04/24 05:49
INR 1.00 10/04/24 05:49
APTT 27.5 Sec (23.4-35.0) 10/04/24 05:49
Sodium 141 mmol/L (135-145) 10/06/24 07:28
Potassium 4.7 mmol/L (3.5-5.1) 10/06/24 07:28
BUN 17 mg/dl (7-17) 10/06/24 07:28
Creatinine 0.9 mg/dL (0.6-1.0) 10/06/24 07:28
Glucose 115 mg/dl (70-99) H 10/06/24 07:28
Vital Signs and I&O:
Vital Signs
Temp Pulse Resp BP Pulse Ox
98.5 F 69 18 115/57 96
10/07/24 07:14 10/07/24 07:14 10/07/24 07:14 10/07/24 07:14 10/07/24 07:14
Vital Signs
Temp Pulse Resp BP Pulse Ox
98.5 F 69 18 115/57 96
10/07/24 07:14 10/07/24 07:14 10/07/24 07:14 10/07/24 07:14 10/07/24 07:14
Intake & Output
10/05/24 10/06/24 10/07/24 10/08/24
06:59 06:59 06:59 06:59
Intake Total 720 / 720 480 / 480 860 / 860
Output Total 100 / 100
Balance 720 / 720 380 / 380 860 / 860
Physical Exam
Physical Exam
GEN: No distress, awake, alert, oriented x3
HEENT: supple, anicteric, mmm
LUNGS: CTA b/l, no wheezes/rales
CV: Reg, 1/6 syst murmur
EXT: No clubbing, cyanosis, or edema
NEURO: Gross non-focal
SKIN: Warm, dry, no rash
[2024-10-07 08:58] LABS: ALT (SGPT) 17 U/L (0-35); AST (SGOT) 22 U/L (14-36); Albumin 3.7 g/dl (3.5-5.0); Alkaline Phosphatase 61 U/L (38-126); Blood Urea Nitrogen 18 mg/dl (7-17); Calcium 9.3 mg/dl (8.4-10.2); Carbon Dioxide 22 mmol/L (22-30); Chloride 107 mmol/L (98-107); Estimated Creatinine Clearance 49 ml/min; Glucose 107 mg/dl (70-99); Potassium 3.9 mmol/L (3.5-5.1); Sodium 144 mmol/L (135-145); Total Bilirubin 0.8 mg/dl (0.2-1.3); Total Protein 6.3 g/dl (6.3-8.2); eGFR > 60.00
[2024-10-07] MEDS: ASPIR LOW (ENTERIC COATED) 81 MG PO (09:04)
[2024-10-07] MEDS: COLACE PO ×2 (09:04→21:18)
[2024-10-07] MEDS: CYANOCOBALAMIN 1000 MCG IM (09:05)
[2024-10-07] MEDS: COZAAR 50 MG PO (09:05)
[2024-10-07] MEDS: PLAVIX 75 MG PO (09:05)
[2024-10-07] MEDS: MIRALAX PO (09:06)
[2024-10-07] MEDS: TRANDATE PO (09:12)
--- NOTE | 2024-10-07 11:18 | W.PN.HOSP.TC ---
Today's Communication/Plan
-
NPO for TCAR today
Assessment / Plan
Assessment / Plan
83-year-old female with CVA
MRI- 1.). There are multiple areas of acute/subacute infarct measuring up to 3.5 cm in the left middle cerebral artery distribution suggesting embolic infarct
2). There is a 5 cm heterogeneous, densely enhancing mass in the right carotid space and parapharyngeal space most consistent with carotid body tumor
3). 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
MRA- head-There is an approximately 70% stenosis of the M1 segment of the left middle cerebral artery with associated decreased flow in the M2 and 3 branches of the left middle cerebral artery when compared with the right
MRA neck-1.).There is near 70% stenosis of the left internal carotid artery at its origin
2). 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
3). The tumor is associated with medial displacement of the right internal carotid artery but there is no significant stenosis at the right carotid bifurcation or cervical portion of the right internal carotid artery
Barium swallow-unremarkable except for incidental cricopharyngeal muscle spasm
Echo 10/04/2024-LV size and systolic function. Ejection fraction 5060 to 65%. Grade 1 diastolic dysfunction. Mild MR trace TR, pulmonary artery pressure 20 to 25 mmHg, moderate AAS
CT A/P
IMPRESSION:
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 Consider correlation with lab values for functionality.
Cholelithiasis.
Barium contrast is present throughout the colon with associated streak artifact.
CVS: S1-S2 normal, sm apex, aa
Chest: CTA B/L
Abdomen: Soft, NT
Extremities: No edema
no neuro deficits
# CVA
Numbness and aphasia on presentation
70% stenosis of the left internal carotid artery at its origin; Atherosclerotic plaque in the proximal right ICA. Calcific atherosclerotic plaque in the left carotid bifurcation left ICA
MRI of the brain-multiple areas of acute and subacute infarct measuring up to 3.5 cm in the left MCA suggesting embolic infarct.
On aspirin Plavix and statin
Continue on telemetry
Vascular evaluation appreciated, plan for TCAR today
Stress test with no reversible ischemia. Moderate risk for procedure - seen by cardiology for clearance
# 5 cm heterogenous densely enhancing mass in the right carotid space and parapharyngeal space consistent with a carotid body tumor associated with medial displacement of the right internal carotid artery but no significant stenosis of the right
carotid artery bifurcation or cervical portion of the right internal carotid artery
Appreciate Endocrinology
plasma metanephrines pending
BID Labetalol - will try to convince patient to take 1/2 dose this morning
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
# Chest pain-EKG without ischemia. Troponins negative/No PE ON CT/Echo with no WMA/Stress neg for reversible ischemia
# Abnormal urine analysis patient has a lot of squamous cells. Will not treat unless symptomatic.
# Hypothyroidism-continue Synthroid
# Hypertension-continue losartan
# Vitamin B12 deficiency-replete
# DVT prophylaxis-Lovenox
# Full code
51 minutes spent on patient care
Anticipated Discharge: 24 - 48 hours
Subjective/Interval History
-
Date of Service: October 07, 2024
awaiting OR
Objective Data
-
Labs:
Laboratory Results
10/07/24
07:11
WBC 6.0
Hgb 12.5
Hct 37.4
Plt Count 175
Sodium 144
Potassium 3.9
Chloride 107
Carbon Dioxide 22
BUN 18 H
Creatinine 0.9
Glucose 107 H
Calcium 9.3
Total Bilirubin 0.8
AST 22
ALT 17
Alkaline Phosphatase 61
Vital Signs:
Vital Signs
Temp Pulse Resp BP Pulse Ox
98.5 F 69 18 115/57 96
10/07/24 07:14 10/07/24 07:14 10/07/24 07:14 10/07/24 07:14 10/07/24 07:14
I&O
10/06/24 10/07/24 10/08/24
06:59 06:59 06:59
Intake Total 480 / 480 860 / 860
Output Total 100 / 100
Balance 380 / 380 860 / 860
Review of Systems
-
History Source: Patient
All other systems: Reviewed and negative
Physical Exam
-
General: No Apparent Distress
HEENT: PERRLA
Respiratory: Clear to Auscultation; Negative Wheezes
Cardiac: Regular Rhythm and S1/S2
GI: Soft and Nontender
Musculoskeletal: No Edema
Skin: Warm and Dry; Negative Rash
Neuro: AO x 3 and Other (speech clear )
Psych: Calm
Data Reviewed
-
Diagnostic Radiology: Report Reviewed by me
Labs: Labs Reviewed by me
[2024-10-07] MEDS: TRANDATE 100 MG PO ×2 (11:58→21:00)
[2024-10-07] MEDS: BACTROBAN 2% OINTMENT 1 APPLIC NASAL (12:37)
[2024-10-07] MEDS: PERIDEX 0.12% ORAL RINSE 15 ML PO (12:38)
--- NOTE | 2024-10-07 13:47 | W.SUR.PREOP ---
Pre-Operative Surgical Note
-
I have examined this patient prior to the performance of the scheduled procedure.
The patient's condition is unchanged from the time of the current History and
Physical and the patient is able to undergo the scheduled procedure.
--- NOTE | 2024-10-07 14:08 | CM ---
Patient for OR today and possibly transfer to ICU following procedure. CM will continue to follow for discharge planning needs.
Plan; TBD pending medical treatment plan
[2024-10-07 15:03] LABS: ACT-LR - POC 276 Seconds (116-155)
--- NOTE | 2024-10-07 15:40 | W.SUR.POST ---
Surgical Immediate Post Op
Note
Pre Op Diagnosis: Left symptomatic carotid stenosis
Post Op Diagnosis: Left symptomatic right stenosis
Procedure Performed: Left TCAR
Primary Surgeon: Celso Cast MD
fitter's assistant: DORIS Wick
Anesthesia: GETA
Estimated Blood Loss: 5 ml
Fluids: See to anesthesia flowsheet
Drains/Shunts: N/A
Specimens/Cultures: N/A
Doppler/Duplex/Angio (Y/N): Y
Complications: None
Operative Findings: Upon waking from anesthesia patient can move bilateral upper extremities and lower extremities to command and spontaneously
[2024-10-07] MEDS: SUBLIMAZE 25 MCG IV (16:10)
[2024-10-07] MEDS: SUBLIMAZE 50 MCG IV (16:20)
[2024-10-07 16:28] LABS: Hemoglobin 12.1 g/dL (12.0-16.0); Mean Corp Hgb Conc. 34.6 g/dL (33.0-37.0); Mean Corpuscular Hgb 36.6 pg (27.0-31.0); Mean Corpuscular Volume 105.7 fL (81.0-99.0); Mean Platelet Volume 10.3 fL (7.4-10.4); Platelet Count 147 10^3/uL (130-400); Red Blood Cell Count 3.31 10^6/uL (4.20-5.40); Red Cell Dist. Width 13.9 % (11.5-14.5)
--- NOTE | 2024-10-07 16:30 | OR.RPT ---
Operative Report
Operative Report
PROCEDURE DATE: 10/07/2024
Preoperative diagnosis: Symptomatic left carotid artery stenosis.
Postoperative diagnosis: same
Procedure:
1. Open exposure of left common carotid artery.
2. Transcarotid left artery revascularization with stent (TCAR) with Enroute 9mm x 40mm self-expanding stent, and utilizing Enroute FIELD STAFF MANAGER flow reversal intraprocedural neuro protection.
3. Intraoperative EEG/SSEP monitoring.
4. Supervision and interpretation
CPT code 58572, SV[facility]QI TCAR #[id number]
Surgeon: Segun
Street Contractor: MONIQUE Storm, required for all aspects of procedure including assistance with traction/countertraction, following a suture line, catheter exchanges, assistance with closure.
Complications: None
Anesthesia: General
Indications for procedure:
Symptomatic left carotid artery stenosis with recent strokes in the left MCA distribution with significant carotid stenosis. She had a right carotid body tumor incidentally discovered. In addition hypervascularity in the left carotid bifurcation
region with slight splaying of the bifurcation, raise concern to me that there may have been an early carotid body tumor there. Given her age, I felt that likely would not favor putting her through excision of the carotid body tumor in conjunction
with revascularization. Therefore I felt open surgical revascularization at this time would be higher risk. Favored TCAR, and that would not obviate the ability to later resect carotid body tumor if needed. In addition even if there was not a
carotid body tumor I concerned about hypervascularity and bleeding risks in that region. This was all fully discussed with the patient and her family. We discussed left TCAR. Risk/benefit/alternatives also discussed. Patient understood and
wished to proceed. Patient had been pretreated with dual antiplatelet therapy.
Description of procedure:
Patient was identified brought to the operating room placed on the table in supine position. After the adequate administration of anesthesia and perioperative antibiotics she was prepped and draped in the standard surgical fashion. A standard
preoperative timeout was undertaken and everybody was in agreement the plan. A longitudinal incision was made at the base of the left neck between the heads of the sternocleidomastoid muscle just superior to the clavicle. This incision was carried
through the skin subcutaneous tissue. Using the electrocautery dissection was carried through the platysma muscle layer and then in the plane between the heads of the sternocleidomastoid muscle. Then using a combination of sharp dissection with
the Metzenbaum scissors and electrocautery I dissected along the anterior medial border of the internal jugular vein. The common carotid artery was identified and carefully dissected away from the surrounding structures take great care to avoid any
injury to the structures. A vessel loop was passed around it. The common carotid artery was dissected circumferentially only in the proximal portion of the exposed artery, and the anterior surface was dissected for another 2 cm. Next, a 5-0
Prolene pursestring stitch was placed on the anterior middle surface of the common carotid artery at the anticipated puncture/cannulation site.
Next, the right common femoral vein was punctured with a micropuncture kit under direct duplex ultrasound guidance. An 8 [place] venous sheath was placed over 0.035 inch wire into the vein. The sheath was flushed. The patient was now given 7500
units of intravenous heparin.
Next, while maintaining anterior tension on the vessel loop (single looped), the common carotid artery was punctured with a micropuncture needle (premarked) to only 1 cm and a premarked 0.018 inch wire was inserted and then the needle was exchanged
out for a premarked micropuncture sheath and advanced to 3 cm yogesh. The dilator and wire were then removed. Left anterior oblique angiogram was performed. This delineated the carotid bifurcation. It confirmed the severe stenosis in the proximal
internal carotid artery. The carotid bifurcation was marked on the screen. I then advanced a 0 .035 inch wire with a J curve at the tip. This was stopped just short of the bifurcation. I then exchanged the micropuncture sheath out for the 8
[place] arterial [address] sheath, which was advanced to the footplate under fluoroscopy with careful vigilance of the distal tip of the wire. Once advanced to the footplate, the introducer and wire were removed. The tension from the vessel loop
was released. And the sheath was secured to the skin with silk suture. The sheath was burped back and also flushed carefully. Next repeat imaging was undertaken confirming the best angulation of the gantry for imaging. At this point, the
angioplasty balloon and stent were prepared. We pause to confirm the plan regarding balloon/stent, and confirmed adequate ACT over 250. Next, I connected the arterial sheath to the venous sheath with the filter section. As such passive flow
reversal was initiated. There were no evidence of any EEG or SSEP changes. We flushed the venous sheath to confirm adequate passive flow reversal.
At this point given that we were otherwise ready, I tightened my double looped vessel loop on the common carotid artery thereby initiating active flow reversal. Again I flushed the venous sheath to confirm active flow reversal. There was no EEG or
SSEP changes. I now used a precurved 0.014 inch wire and roadmap assisted fluoroscopy guidance to cannulate the internal carotid artery carefully. I was able to gain access into the distal cervical/proximal intracranial internal carotid artery.
Next I used a balloon which was a 4 mm x 30 mm Viatrac standard angioplasty balloon. I then pre-angioplastied the stenosis. The patient had been given glycopyrrolate to prevent any baroreceptor mediated bradycardia. The patient's blood pressure
had also been optimized after discussion with our anesthesiology colleagues prior to initiation of flow reversal. I then quickly exchanged out my balloon catheter for the stent 9mm x 40mm Enroute stent. The stent was positioned under roadmap
guidance. When I was happy with the positioning I then unsheathed in the standard fashion. The stent delivery device was then removed. Completion angiography was undertaken after 1 to 2 minutes of waiting after deployment of the stent for the
flow reversal to take effect. Completion angiogram demonstrated excellent result and it was done in 2 obliquities to confirm. No residual stenosis was noted. Good intracranial filling was noted. At this point I was very satisfied. The 0.014
inch wire was then removed from the internal carotid artery. Next, the common carotid artery was unclamped. Finally I disconnected the flow reversal circuit.
Now, I tied down my 5-0 Prolene pursestring suture on the common carotid artery while removing the sheath. An additional 6-0 [id number] suture was placed for full hemostasis. We gave protamine to reverse the heparin. I irrigated the incision
site and confirmed full hemostasis. Then, we closed in layers using single [id number] 2-0 Vicryl to reapproximate the sternocleidomastoid heads. Then used 3-0 Vicryl platysma muscle running layer followed by 4-0 Monocryl subcuticular running
stitch. Dermabond was applied. The femoral vein sheath was also removed and manual pressure was applied to that site and hemostasis was noted there as well. The patient tolerated the procedure well. She awoke moving all 4 extremities to command.
[2024-10-07 16:46] LABS: Blood Urea Nitrogen 13 mg/dl (7-17); Calcium 8.5 mg/dl (8.4-10.2); Carbon Dioxide 22 mmol/L (22-30); Chloride 111 mmol/L (98-107); Estimated Creatinine Clearance 62 ml/min; Glucose 120 mg/dl (70-99); Potassium 3.9 mmol/L (3.5-5.1); Sodium 143 mmol/L (135-145); eGFR > 60.00
--- NOTE | 2024-10-07 17:44 | CON.INTV ---
Consultation
Consultation Request
Date/Time Consultation Requested: 10/07/2024 - 153
Date/Time Consultation Performed: 10/07/2024 - 1601
Requesting Provider: DORIS Hemphill
Performing Provider: Jc Hilliard MD
Reason for Consultation: s/p TCAR
Medical History
-
Chief Complaint: Right-sided numbness + slurred speech
History of Present Illness:
84-year-old female non-smoker with a past medical history of chronic idiopathic urticaria/angioedema, hypothyroidism, hypertension, GERD, personal history of COVID-19 (10/2022), hyperlipidemia, fibroids s/p hysterectomy, and history of anaphylaxis
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 Upon arrival here to the ER all symptoms resolved with exception of finding words. She was hypertensive via EMS to
174/123. For about 3 weeks prior to arrival she has been having difficulty swallowing. Her right-sided numbness is mainly in her arm and she could not move it normally and she also had garbled speech and seemed confused. She had a mild headache
at the time as well with some blurry vision in her right visual field. Her difficulty swallowing has led to a feeling that her food is stuck in her upper chest which causes chest pain. In the ER she was afebrile to 97.9 �F, pulse rate 83,
breathing at 24 breaths/min, BP 164/110 and saturating 98% on room air. Labs showed Hb 14.2, platelet count 191, ESR 24, INR 0.89, sodium 146, glucose 123, troponin 0.015, and UA with +1 leukocyte esterase and 11�15 urine WBC. Urine culture was
sent off and has grown E. coli (pansensitive). 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
and a 1 cm partially calcified meningioma in the right temporal lobe with no CT evidence of acute infarct. CTA head/neck performed showing 70% stenosis of the M1 segment of the left MCA and moderate partially calcific atherosclerotic plaque in the
left carotid bifurcation with 65% stenosis of the left ICA at its origin. She was initially admitted to telemetry under the hospitalist for a suspected TIA. Vascular surgery consulted and had concern for left-sided symptomatic carotid artery
stenosis. A brain MRI was done on 10/03/2024 showing multiple areas of acute/subacute infarcts measuring up to 3.5 cm in the left MCA distribution suggesting embolic infarct. Vascular surgery discussed surgical intervention and recommended left
TCAR. Risks and benefits reviewed and she has agreed to procedure. Today she underwent transcarotid left artery revascularization with stent with no immediate complications. She was transferred to the ICU postoperatively and electronic prepress operator services
consulted for additional management/recommendations.
When I saw the pt she was resting in bed, still having some post-operative pain in her left side of her neck/upper chest. Her , Alex, and daughter, Ethel, were at bedside and all questions were answered. HR 66, BP 129/58 and SpO2 96% on
2L/min. She denies PRIETO, abd pain, N/V/f/c.
PMHx: Hyperlipidemia, fibroids s/p hysterectomy, history of anaphylaxis (unknown etiology), malignant melanoma s/p excision, chronic idiopathic urticaria/angioedema (2012), hypothyroidism, hypertension, GERD, personal history of COVID-19 (10/2022)
s/p Paxlovid
PSHx: Leg excision of melanoma (2008), total hysterectomy (1986)
Past Medical History
Past Medical History: Other (Above as per HPI)
Past Surgical History: Other (Above as per HPI)
Social History
Tobacco: Non-smoker
Alcohol: Occasional (Social)
Drug: None
Personal:
Living: With Family
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
Family History
Family History: CAD (Father + mother), Hypertension (Daughter) and Other (Son + daughter: Hemochromatosis; daughter: Hypothyroidism; mother: RA)
Allergies / Home Medications
Allergies
Allergy/AdvReac Type Severity Reaction Status Date / Time
No Known Allergies Allergy Verified 10/02/24 23:56
Home Medications
�Medication �Instructions �Recorded �Confirmed �Last Taken �Type
Levothyroxine Sodium 1 tab PO DAILY AT 0700 Thyroid 09/11/19 10/03/24 Unknown History
losartan 50 mg tablet 50 mg PO DAILY Blood Pressure 10/03/24 10/03/24 Unknown History
Review of Systems
-
History Source: Patient
All other systems: Negative unless noted
Vitals / Labs / Diagnostic Testing
Vital Signs
Temp Pulse Resp BP Pulse Ox
98.1 F 69 17 159/73 98
10/07/24 17:28 10/07/24 16:45 10/07/24 16:45 10/07/24 16:45 10/07/24 16:45
Lab Data
10/07/24 16:14
10/07/24 16:14
Microbiology
10/02/24 23:40 Urine Urine Culture - Final
Escherichia coli
Diagnostic Testing:
Physical Exam
-
HEENT: Normocephalic and Anicteric
Cardiovascular: S1/S2 and Peripheral Edema (negative)
Respiratory: Clear, Wheeze (negative), Rales (negative), Rhonchi (negative) and Non-Labored Respirations
GI: Soft, Non Distended, Non Tender and Normal Bowel Sounds
Neurology: AO x 3 and Tremors (negative)
Skin: Warm and Dry
General: Respiratory Distress (negative), Pain (left side of neck/upper chest), Chills (negative) and Sweats (negative)
Assessment
-
Assessment: 84-year-old female non-smoker with a past medical history of chronic idiopathic urticaria/angioedema, hypothyroidism, hypertension, GERD, personal history of COVID-19 (10/2022), hyperlipidemia, fibroids s/p hysterectomy, and history of
anaphylaxis (unknown etiology) who presents with right-sided numbness, slurred speech and word finding difficulty lasting 15 minutes MANAGER AVIATION. Upon arrival here to the ER all symptoms resolved with exception of finding words. She was hypertensive via
EMS to 174/123. For about 3 weeks prior to arrival she has been having difficulty swallowing. Her right-sided numbness is mainly in her arm and she could not move it normally and she also had garbled speech and seemed confused. She had a mild
headache at the time as well with some blurry vision in her right visual field. Her difficulty swallowing has led to a feeling that her food is stuck in her upper chest which causes chest pain. In the ER she was afebrile to 97.9 �F, pulse rate 83,
breathing at 24 breaths/min, BP 164/110 and saturating 98% on room air. Labs showed Hb 14.2, platelet count 191, ESR 24, INR 0.89, sodium 146, glucose 123, troponin 0.015, and UA with +1 leukocyte esterase and 11�15 urine WBC. Urine culture was
sent off and has grown E. coli (pansensitive). 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
and a 1 cm partially calcified meningioma in the right temporal lobe with no CT evidence of acute infarct. CTA head/neck performed showing 70% stenosis of the M1 segment of the left MCA and moderate partially calcific atherosclerotic plaque in the
left carotid bifurcation with 65% stenosis of the left ICA at its origin. She was initially admitted to telemetry under the hospitalist for a suspected TIA. Vascular surgery consulted and had concern for left-sided symptomatic carotid artery
stenosis. A brain MRI was done on 10/03/2024 showing multiple areas of acute/subacute infarcts measuring up to 3.5 cm in the left MCA distribution suggesting embolic infarct. Vascular surgery discussed surgical intervention and recommended left
TCAR. Risks and benefits reviewed and she has agreed to procedure. Today she underwent transcarotid left artery revascularization with stent with no immediate complications. She was transferred to the ICU postoperatively and electronic prepress operator services
consulted for additional management/recommendations.
Chronic conditions MANAGER AVIATION: Hyperlipidemia, fibroids s/p hysterectomy, history of anaphylaxis (unknown etiology), malignant melanoma s/p excision, chronic idiopathic urticaria/angioedema (2012), hypothyroidism, hypertension, GERD, personal history of
COVID-19 (10/2022) s/p Paxlovid
Impression:
#Symptomatic left carotid artery stenosis s/p transcarotid left artery revascularization with stent (POD #0)
#Right-sided numbness + slurred speech due to multiple acute/subacute infarcts in the left MCA distribution suggesting embolic etiology
#Thrombocytopenia (mild)
#Elevated troponin (peaked at 0.116 on 10/03/2024)
#UTI due to pansensitive E. coli (via UCx on 10/02/2024
#Meningioma x 2 (3.3 cm in the right parietal convexity +1 cm in right temporal lobe � seen on CT head from 10/02/2024)
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
#Hypertension
#Hypothyroidism
#Personal history of COVID-19 (10/2022) s/p Paxlovid
#Hyperlipidemia
#Chronic idiopathic urticaria/angioedema (2012)
Plan:
Postoperative surgical intensive care unit monitoring
Supplemental oxygen to maintain SpO2 >90-94%, and wean down as tolerated
prn nebulized bronchodilators
Incentive spirometry encouraged 10x per hour for at least 4 hrs a day
Aspiration precautions
Pain control
Neuro and vascular checks per protocol
Maintain MAP>65
Replete electrolytes with K>4, Mg>2
Maintain euglycemia with goal BG 140-180
Given her recent left MCA stroke, continue with DAPT with ASA + Plavix; continue with high intensity statin with goal LDL <70
Continue with levothyroxine
Her troponin peaked at 0.116 on 10/03/2024 and has downtrended since � no longer need to continue trending
Follow-up plasma metanephrine, plasma normetanephrine and urine catecholamine levels
Vascular surgery following-correspondence and operative notes reviewed
Transfuse blood products as needed to keep Hb>7g/dL, and plt>50k (given post-operative status)
DVT prophylaxis: LMWH
Early nutrition
Early mobilization
Critical care statement: A total of 41 minutes of critical care time was provided for this patient today. This includes management of unstable vital signs, evaluation of the patient at bedside, reviewing the patient's pertinent medical records
including radiographs, microbiology, laboratory evaluations, and discussion with primary team, consultants, pharmacy, nutrition, physical therapy, case management, charge nurse, critical care nursing, and respiratory therapy.
[2024-10-07] MEDS: DILAUDID 0.5 MG IV ×2 (17:47→21:06)
--- NOTE | 2024-10-07 18:04 | PTCARENOTE ---
Pt received from PACU into rm [id number]. Upon transfer, pt is complaining of 10/10 pain in her L neck and jaw. Neuro check at this time is intact although pt is still quite drowsy. MD made aware. 0.5 dilaudid ordered, an EKG and troponin. Due to SBP's >
165 a cardene gtt was started at 2.5mg/hr. Surgical sites intact. Pt is Ox3 and appropriate. R radial A line zeroed and flushed, reads 10mmhg higher than NIBP. 100% on 2L, breath sounds clear. Round, Obese ABD, no complaints of nausea. Currently
ordered bedrest. IV sites intact. Call anaya within reach.
[2024-10-07 18:23] LABS: Troponin I < 0.012 ng/ml
[2024-10-07] MEDS: ANCEF 10 IV (18:30)
[2024-10-07] MEDS: LIPITOR PO (18:31)
[2024-10-07] MEDS: LOVENOX SC (19:20)
[2024-10-07] MEDS: MELATONIN PO (22:33)
[2024-10-08] VITALS (34 sets, daily range): BP systolic 94–132; BP diastolic 42–97; PULSE 65–72; O2SAT 93
[2024-10-08 03:36] LABS: Hematocrit 34.2 % (37.0-47.0); Hemoglobin 11.8 g/dL (12.0-16.0); Mean Corp Hgb Conc. 34.5 g/dL (33.0-37.0); Mean Corpuscular Hgb 36.9 pg (27.0-31.0); Mean Corpuscular Volume 106.9 fL (81.0-99.0); Mean Platelet Volume 10.3 fL (7.4-10.4); Platelet Count 155 10^3/uL (130-400); Red Cell Dist. Width 13.8 % (11.5-14.5); White Blood Cell Count 7.7 10^3/uL (4.8-10.8)
[2024-10-08 03:52] LABS: APTT 27.4 Sec (23.4-35.0); INR 1.02; PT 13.9 Sec (11.4-14.6)
[2024-10-08 04:02] LABS: ALT (SGPT) 15 U/L (0-35); AST (SGOT) 20 U/L (14-36); Albumin 3.3 g/dl (3.5-5.0); Alkaline Phosphatase 59 U/L (38-126); Blood Urea Nitrogen 11 mg/dl (7-17); Calcium 8.6 mg/dl (8.4-10.2); Carbon Dioxide 22 mmol/L (22-30); Chloride 112 mmol/L (98-107); Estimated Creatinine Clearance 62 ml/min; Glucose 119 mg/dl (70-99); Potassium 4.2 mmol/L (3.5-5.1); Sodium 143 mmol/L (135-145); Total Bilirubin 0.8 mg/dl (0.2-1.3); Total Protein 5.8 g/dl (6.3-8.2); eGFR > 60.00
--- NOTE | 2024-10-08 05:37 | W.PN.UPDATE ---
Update Note
Progress Note Update
Morning EKG = prolonged QTC= 508
[2024-10-08] MEDS: NSS 1000 IV (05:49)
[2024-10-08] MEDS: TYLENOL 650 MG PO (06:36)
[2024-10-08] MEDS: SYNTHROID 50 MCG PO (06:36)
--- NOTE | 2024-10-08 08:02 | PTCARENOTE ---
Pt received from shift production supervisor RN. Pain much better controlled, pt states she is having no pain from her incision and her only complaint is currently a sore throat and a minor headache relieved by tylenol. L Neck incision intact, R groin incision with
tegaderm in place- no apparent hematoma. NSR with PVC's on tele, trace LE edema. R radial A line zeroed and flushed, becoming more positional. Currently 94% on RA, breath sounds clear. Round, obese ABD, pt states last BM was multiple days ago and
she has not had a great appetite leading up to surgery. Purewick in place. Pt states, she does not feel like she is going to be able to urinate in the bed and would like to wait until she can get OOB. IV sites intact.. Call anaya within reach. Family
in room all questions answered.
--- NOTE | 2024-10-08 08:13 | W.PN.INTV ---
Today's Communication / Plan
Recommendations
Up OOB as tolerated
Pain control
Encourage incentive spirometer
Maintain SpO2 >90-94%
Patient likely being discharged home later today as per vascular surgery. No additional recommendations at this time Mud Boss/Pulmonary service will now sign off. Please reconsult if there are any additional questions/concerns, or if patient's
respiratory status deteriorates.
Assessment
-
Assessment: 84-year-old female non-smoker with a past medical history of chronic idiopathic urticaria/angioedema, hypothyroidism, hypertension, GERD, personal history of COVID-19 (10/2022), hyperlipidemia, fibroids s/p hysterectomy, and history of
anaphylaxis (unknown etiology) who presents with right-sided numbness, slurred speech and word finding difficulty lasting 15 minutes ORDER CONTROL CLERK BLOOD BANK. Upon arrival here to the ER all symptoms resolved with exception of finding words. She was hypertensive via
EMS to 174/123. For about 3 weeks prior to arrival she has been having difficulty swallowing. Her right-sided numbness is mainly in her arm and she could not move it normally and she also had garbled speech and seemed confused. She had a mild
headache at the time as well with some blurry vision in her right visual field. Her difficulty swallowing has led to a feeling that her food is stuck in her upper chest which causes chest pain. In the ER she was afebrile to 97.9 �F, pulse rate 83,
breathing at 24 breaths/min, BP 164/110 and saturating 98% on room air. Labs showed Hb 14.2, platelet count 191, ESR 24, INR 0.89, sodium 146, glucose 123, troponin 0.015, and UA with +1 leukocyte esterase and 11�15 urine WBC. Urine culture was
sent off and has grown E. coli (pansensitive). 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
and a 1 cm partially calcified meningioma in the right temporal lobe with no CT evidence of acute infarct. CTA head/neck performed showing 70% stenosis of the M1 segment of the left MCA and moderate partially calcific atherosclerotic plaque in the
left carotid bifurcation with 65% stenosis of the left ICA at its origin. She was initially admitted to telemetry under the hospitalist for a suspected TIA. Vascular surgery consulted and had concern for left-sided symptomatic carotid artery
stenosis. A brain MRI was done on 10/03/2024 showing multiple areas of acute/subacute infarcts measuring up to 3.5 cm in the left MCA distribution suggesting embolic infarct. Vascular surgery discussed surgical intervention and recommended left
TCAR. Risks and benefits reviewed and she has agreed to procedure. Today she underwent transcarotid left artery revascularization with stent with no immediate complications. She was transferred to the ICU postoperatively and metal treater services
consulted for additional management/recommendations.
Chronic conditions ORDER CONTROL CLERK BLOOD BANK: Hyperlipidemia, fibroids s/p hysterectomy, history of anaphylaxis (unknown etiology), malignant melanoma s/p excision, chronic idiopathic urticaria/angioedema (2012), hypothyroidism, hypertension, GERD, personal history of
COVID-19 (10/2022) s/p Paxlovid
Impression:
#Symptomatic left carotid artery stenosis s/p transcarotid left artery revascularization with stent (POD #1)
#Right-sided numbness + slurred speech due to multiple acute/subacute infarcts in the left MCA distribution suggesting embolic etiology
#Thrombocytopenia (mild) - now resolved
#Elevated troponin (peaked at 0.116 on 10/03/2024)
#UTI due to pansensitive E. coli (via UCx on 10/02/2024
#Meningioma x 2 (3.3 cm in the right parietal convexity +1 cm in right temporal lobe � seen on CT head from 10/02/2024)
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
#Hypertension
#Hypothyroidism
#Personal history of COVID-19 (10/2022) s/p Paxlovid
#Hyperlipidemia
#Chronic idiopathic urticaria/angioedema (2012)
Plan:
Postoperative surgical intensive care unit monitoring
Supplemental oxygen to maintain SpO2 >90-94% - currently on room air
prn nebulized bronchodilators - not currently bronchospastic
Incentive spirometry encouraged 10x per hour for at least 4 hrs a day
Aspiration precautions
Pain control
Neuro and vascular checks per protocol
Maintain MAP>65
Replete electrolytes with K>4, Mg>2
Maintain euglycemia with goal BG 140-180
Given her recent left MCA stroke, continue with DAPT with ASA + Plavix; continue with high intensity statin with goal LDL <70
Continue with levothyroxine
Her troponin peaked at 0.116 on 10/03/2024 and has downtrended since � no longer need to continue trending
Follow-up plasma metanephrine, plasma normetanephrine and urine catecholamine levels
Vascular surgery following-correspondence and operative notes reviewed
Transfuse blood products as needed to keep Hb>7g/dL, and plt>50k (given post-operative status)
DVT prophylaxis: LMWH
Early nutrition
Early mobilization
Patient likely being discharged home later today as per vascular surgery. No additional recommendations at this time Mud Boss/Pulmonary service will now sign off. Thank you for allowing us to be involved in the care of this patient. Please
reconsult if there are any additional questions/concerns, or if patient's respiratory status deteriorates.
Total time spent today was 56 minutes for this encounter. Time includes reviewing laboratory test/imaging results, reviewing pertinent medical records, obtaining and reviewing medical history, performing an appropriate exam, ordering medications,
tests and procedures. Time also includes documentation of this encounter, coordinating patient care and communicating with other healthcare professionals. Total time does not include separately billed tests performed on this date of service.
Subjective Dataa
Subjective Data
Date of Service:
Date of Service: October 08, 2024
Chief Complaint: Mud Boss Follow Up
Subjective:
Patient seen and evaluated this morning. She denies having any left-sided neck pain, and heart rate 75, BP 115/46 and saturating 91% on room air. Patient's son, Wyatt, and , Alex, both at bedside and all questions were answered. She does not
remember having any severe pain yesterday. She currently denies PRIETO, chest pain, SOB, abdominal pain, nausea, fevers or chills
Review of Systems
General: Other (Negative unless mentioned above)
Objective Data
Data Reviewed
Vital Signs / I&O / Oxygen:
Vital Signs
Temp Pulse Resp BP Pulse Ox
98.7 F 68 18 119/97 94
10/08/24 07:30 10/08/24 07:15 10/08/24 07:15 10/08/24 09:36 10/08/24 08:19
Intake and Output
10/07/24 10/08/24 10/09/24
06:59 06:59 06:59
Intake Total 860 / 860 100 / 100
Output Total 560 / 560
Balance 860 / 860 -460 / -460
SaO2 94
Nasal Cannula flow liters per 2
minute
Physical Exam
General: Respiratory Distress (negative), Comfortable, Chills (negative) and Sweats (negative)
HEENT: Normocephalic and Anicteric
Cardiovascular: S1-S2 and Peripheral Edema (negative)
Respiratory: Wheeze (negative), Crackles (negative), Rhonchi (negative) and Non-Labored Respirations
GI: Soft, Non Distended, Non Tender and Normal Bowel Sounds
Neurology: AO x 3 and Tremors (negative)
Skin: Warm, Dry, Cyanosis (negative), Jaundice (negative) and Other (Vertical incision saenz seen on left)
Labs/Micro/Reports
Lab Data
10/08/24 03:24
10/08/24 03:24
Laboratory Results
10/08/24
03:24
PT 13.9
INR 1.02
APTT 27.4
Microbiology
10/02/24 23:40 Urine Urine Culture - Final
Escherichia coli
--- NOTE | 2024-10-08 09:12 | W.PN.HOSP.TC ---
Addendum entered and electronically signed by Janis Eckert MD 10/08/24 11:21:
confirmed with Dr. Hernández - OK to stop Labetalol given surgery now complete; awaiting metanephrines - will monitor BP closely
Original Note:
Today's Communication/Plan
-
F/U Vascular surgery recommendations
Assessment / Plan
Assessment / Plan
83-year-old female with CVA
MRI- 1.). There are multiple areas of acute/subacute infarct measuring up to 3.5 cm in the left middle cerebral artery distribution suggesting embolic infarct
2). There is a 5 cm heterogeneous, densely enhancing mass in the right carotid space and parapharyngeal space most consistent with carotid body tumor
3). 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
MRA- head-There is an approximately 70% stenosis of the M1 segment of the left middle cerebral artery with associated decreased flow in the M2 and 3 branches of the left middle cerebral artery when compared with the right
MRA neck-1.).There is near 70% stenosis of the left internal carotid artery at its origin
2). 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
3). The tumor is associated with medial displacement of the right internal carotid artery but there is no significant stenosis at the right carotid bifurcation or cervical portion of the right internal carotid artery
Barium swallow-unremarkable except for incidental cricopharyngeal muscle spasm
Echo 10/04/2024-LV size and systolic function. Ejection fraction 5060 to 65%. Grade 1 diastolic dysfunction. Mild MR trace TR, pulmonary artery pressure 20 to 25 mmHg, moderate AAS
CT A/P
IMPRESSION:
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 Consider correlation with lab values for functionality.
Cholelithiasis.
Barium contrast is present throughout the colon with associated streak artifact.
10/07/24
Procedure:
1. Open exposure of left common carotid artery.
2. Transcarotid left artery revascularization with stent (TCAR) with Enroute 9mm x 40mm self-expanding stent, and utilizing Enroute WAREHOUSER flow reversal intraprocedural neuro protection.
3. Intraoperative EEG/SSEP monitoring.
4. Supervision and interpretation
CPT code 96616, SVS VQI TCAR #[id number]
CVS: S1-S2 normal, sm apex, aa
Chest: CTA B/L
Abdomen: Soft, NT
Extremities: No edema
no neuro deficits
# CVA
ICA Stenosis Left
-Numbness and aphasia on presentation
-70% stenosis of the left internal carotid artery at its origin; Atherosclerotic plaque in the proximal right ICA. Calcific atherosclerotic plaque in the left carotid bifurcation left ICA
-MRI of the brain-multiple areas of acute and subacute infarct measuring up to 3.5 cm in the left MCA suggesting embolic infarct.
-continue aspirin Plavix and statin
-Continue on telemetry
-Stress test with no reversible ischemia. Moderate risk for procedure - seen by cardiology for clearance
-Vascular evaluation appreciated s/p TCAR 10/07/24
# 5 cm heterogenous densely enhancing mass in the right carotid space and parapharyngeal space consistent with a carotid body tumor associated with medial displacement of the right internal carotid artery but no significant stenosis of the right
carotid artery bifurcation or cervical portion of the right internal carotid artery
Appreciate Endocrinology
plasma metanephrines pending
BID Labetalol - she is tolerating 1/2 dose
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
# Chest pain-EKG without ischemia. Troponins negative/No PE ON CT/Echo with no WMA/Stress neg for reversible ischemia
# Abnormal urine analysis patient has a lot of squamous cells. Will not treat unless symptomatic.
# Hypothyroidism-continue Synthroid
# Hypertension-continue losartan
# Vitamin B12 deficiency-replete
# DVT prophylaxis-Lovenox
# Full code
51 minutes spent on patient care
Anticipated Discharge: 24 - 48 hours
Subjective/Interval History
-
Date of Service: October 08, 2024
did well post-op
feeling okay
no chest pain or shortness of breath
Objective Data
-
Labs:
Laboratory Results
10/08/24
03:24
WBC 7.7
Hgb 11.8 L
Hct 34.2 L
Plt Count 155
PT 13.9
INR 1.02
APTT 27.4
Sodium 143
Potassium 4.2
Chloride 112 H
Carbon Dioxide 22
BUN 11
Creatinine 0.7
Glucose 119 H
Calcium 8.6
Total Bilirubin 0.8
AST 20
ALT 15
Alkaline Phosphatase 59
Vital Signs:
Vital Signs
Temp Pulse Resp BP Pulse Ox
98.7 F 68 18 118/54 94
10/08/24 07:30 10/08/24 07:15 10/08/24 07:15 10/08/24 07:13 10/08/24 08:19
I&O
10/07/24 10/08/24 10/09/24
06:59 06:59 06:59
Intake Total 860 / 860 100 / 100
Output Total 560 / 560
Balance 860 / 860 -460 / -460
Review of Systems
-
History Source: Patient
All other systems: Reviewed and negative
Physical Exam
-
General: No Apparent Distress
HEENT: PERRLA
Respiratory: Clear to Auscultation; Negative Wheezes
Cardiac: Regular Rhythm and S1/S2
GI: Soft and Nontender
Musculoskeletal: No Edema
Skin: Warm and Dry; Negative Rash
Neuro: AO x 3 and Other (speech clear )
Psych: Calm
Data Reviewed
-
Diagnostic Radiology: Report Reviewed by me
Labs: Labs Reviewed by me
[2024-10-08] MEDS: CYANOCOBALAMIN 1000 MCG IM (09:36)
[2024-10-08] MEDS: TRANDATE 100 MG PO (09:36)
[2024-10-08] MEDS: COLACE 100 MG PO (09:36)
[2024-10-08] MEDS: COZAAR 50 MG PO (09:36)
[2024-10-08] MEDS: PLAVIX 75 MG PO (09:36)
[2024-10-08] MEDS: ASPIR LOW (ENTERIC COATED) 81 MG PO (09:36)
[2024-10-08] MEDS: MIRALAX 17 GRAMS PO (09:37)
--- NOTE | 2024-10-08 09:40 | CM ---
Addendum entered by Fauzia Pittman RN 10/08/24 16:03:
entered order for discharge.
Spoke with son Wyatt while he was in room with pt .
Pt is in agreement with dc and IMM today.
and son will drive her home.
As per PT pt would benefit from out Pt PT. Wyatt said he will help his momk set up out pt PT.
PLAN Home with out pt PT to be set up by pt.
Original Note:
Postop vascular carotid stent placement.
PT OT speech reordered postop
Preop PT said out pt PT.
Diet advanced to cholesterol lowering diet.
PLAN Home with VN VS out pt PT
--- NOTE | 2024-10-08 10:57 | W.PN.CARDCBS ---
Today's Communication / Plan
-
Stable cardiology status postop
Sign off
Impression / Plan
-
PCP: Dr. Hendrickson
Cardiology: None prior to admission
Impression:
Admitted with stroke like symptoms 10/02/24
Left MCA territory CVA by MRI 10/03/24
Symptomatic left carotid stenosis
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
Elevated Troponin
Moderate by echo 10/04/24
Mild MR
Meningioma
Hypothyroid
HTN
Lexiscan mibi 10/05/24: Moderate-sized area of mild minimally reversible inferior perfusion defect that improved significantly with prone imaging suggesting attenuation, no significant ischemia, EF 56%
Echo 10/04/24: EF 60-65%, mild MR, mod with peak/mean 37/20 mmHg and JEREMY 1.3 cm sq, mild MR
Plan:
Stable cardiology status postop
Blood pressure okay
Continue Lipitor for elevated cholesterol
Continue aspirin and Plavix per neuro
Discussed with family at bedside
Will sign off, call with questions
HPI: Patient came to [facility] on Friday night with stroke symptoms and is now admitted with CVA and symptomatic left carotid lesion, cardiology has been consulted for elevated Troponin. 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
her complex manager strength in her right hand, she showed her and he tried to drive her to [facility], but got lost. The patient recalls being very distressed and her eventually pulled over in a stranger's driveway and they were able to call 911.
Symptoms had improved upon arrival to [facility], but patient was markedly HTN at 164/110. Neurology consulted and MRI revealed a left MCA territory CVA and left carotid lesion. Patient was seen by vascular surgery and left CEA has been recommended.
Cardiology has been asked to see due to elevated Troponin. ER notes and attending notes state that patient had chest pain on admission, but she denies this to me now. Patient says that she was very stressed and angry when she and her got
lost driving to the hospital, but that her chest did not hurt. BP improved with labetalol 20 mg IV x1. Patient has a h/o HTN and takes losartan 50 mg daily at home. Troponin was 0.093 on admission and then peaked at 0.116. ECG showed nonspecific
changes. Echo without WMA. 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
Progress Note - Patient Services Technician
Subjective
Date of Service: October 08, 2024
No complaints
Objective
Labs:
10/08/24 03:24
10/08/24 03:24
Labs
Hgb 11.8 g/dL (12.0-16.0) L 10/08/24 03:24
Hct 34.2 % (37.0-47.0) L 10/08/24 03:24
Plt Count 155 10^3/uL (130-400) 10/08/24 03:24
PT 13.9 Sec (11.4-14.6) 10/08/24 03:24
INR 1.02 10/08/24 03:24
APTT 27.4 Sec (23.4-35.0) 10/08/24 03:24
Sodium 143 mmol/L (135-145) 10/08/24 03:24
Potassium 4.2 mmol/L (3.5-5.1) 10/08/24 03:24
BUN 11 mg/dl (7-17) 10/08/24 03:24
Creatinine 0.7 mg/dL (0.6-1.0) 10/08/24 03:24
Glucose 119 mg/dl (70-99) H 10/08/24 03:24
Troponins
10/07/24
17:44
Troponin I < 0.012
Vital Signs and I&O:
Vital Signs
Temp Pulse Resp BP Pulse Ox
98.7 F 74 21 119/97 93
10/08/24 07:30 10/08/24 09:45 10/08/24 09:45 10/08/24 09:36 10/08/24 09:00
Vital Signs
Temp Pulse Resp BP Pulse Ox
98.7 F 74 21 119/97 93
10/08/24 07:30 10/08/24 09:45 10/08/24 09:45 10/08/24 09:36 10/08/24 09:00
Intake & Output
10/06/24 10/07/24 10/08/24 10/09/24
06:59 06:59 06:59 06:59
Intake Total 480 / 480 860 / 860 100 / 100 700 / 700
Output Total 100 / 100 560 / 560
Balance 380 / 380 860 / 860 -460 / -460 700 / 700
Physical Exam
Physical Exam
General: Well developed, well nourished in NAD.
Neck: Supple, no JVD, HJR, carotids +2 B/L, no bruits bilaterally.
Heart: Non displaced PMI, RRR, no murmurs, No S3, S4, no rubs.
Lungs: Clear to auscultation bilaterally, no wheeze, rhonchi, rubs bilaterally,
normal expiratory phase.
Extremities: No clubbing, cyanosis or edema bilaterally.
Neuro: Grossly nonfocal, awake, alert and oriented x3.
--- NOTE | 2024-10-08 12:13 | W.PN.VS ---
Today's Communication / Plan
-
Seen and assessed with Dr Quintanilla
Assessment/Plan
-
POD #1 left TCAR
Plan:
-DC A-line
-DC IV fluids
-Out of bed/ambulate
-PT
-Increase diet as tolerated
-Likely okay for discharge from vascular standpoint later today
Subjective Data
-
Date of Service: October 08, 2024
Patient seen at bedside this a.m. she offers no complaints at this time. No events overnight. She states that when she takes labetalol she becomes disoriented. I will reach out to primary team about this.
Objective Data
-
Vital Signs
Temp Pulse Resp BP Pulse Ox
98.7 F 74 21 119/97 93
10/08/24 07:30 10/08/24 09:45 10/08/24 09:45 10/08/24 09:36 10/08/24 09:00
Intake and Output
10/07/24 10/08/24 10/09/24
06:59 06:59 06:59
Intake Total 860 / 860 100 / 100 700 / 700
Output Total 560 / 560
Balance 860 / 860 -460 / -460 700 / 700
Intake:
Oral fluids 860 / 860 480 / 480
IV fluids (Total) 100 / 100 220 / 220
NSS 220 / 220
Normosol 100 / 100
Output:
Straight cath output 560 / 560
Other:
Number of approximated MODERATE 2
amounts of urine
Number of approximated LARGE 1
amounts of urine
Lab Results
10/08/24 03:24
10/08/24 03:24
Calcium 8.6 mg/dl (8.4-10.2) 10/08/24 03:24
Total Bilirubin 0.8 mg/dl (0.2-1.3) 10/08/24 03:24
AST 20 U/L (14-36) 10/08/24 03:24
ALT 15 U/L (0-35) 10/08/24 03:24
Alkaline Phosphatase 59 U/L (38-126) 10/08/24 03:24
Total Protein 5.8 g/dl (6.3-8.2) L 10/08/24 03:24
Albumin 3.3 g/dl (3.5-5.0) L 10/08/24 03:24
Physical Exam
-
AAOx3
No tachypnea on room air
No tachycardia
Abdomen soft
Neck site clean, dry, intact, soft
Groin site flat and soft, no drainage noted
Bilateral feet warm
Moves all extremities equally, tongue midline
--- NOTE | 2024-10-08 13:30 | PTCARENOTE ---
Pt reassessed. Had some dizziness shortly after receiving her dose of labetalol earlier in the shift, MD made aware and labetalol now DC'd. IV fluids capped and A line removed. No further changes in assessment.
--- NOTE | 2024-10-08 15:19 | W.DS.TRANS ---
DC Summary - De Icer Element Winder
-
Discharge Instructions:
Discharge Diagnosis/Procedures ischemic stroke, Transcarotid left artery
revascularization with stent (TCAR)
Diet Low Cholesterol
Activity As tolerated
Driving Restrictions As prior to admission
Bathing Restrictions None
Instructions:
Stand-Alone Forms:
Changes to Home Medications: Yes
Discharge Medications:
DC Medications w/original date entered in [facility]
Levothyroxine Sodium 1 tab PO DAILY AT 0700 Thyroid 09/11/19
losartan 50 mg tablet 50 mg PO DAILY Blood Pressure 10/03/24
aspirin 81 mg tablet,delayed release 81 mg PO DAILY #60 tabs 10/08/24
atorvastatin 80 mg tablet 80 mg PO QPM #60 tabs 10/08/24
clopidogrel 75 mg tablet 75 mg PO DAILY #60 tabs 10/08/24
pantoprazole 40 mg tablet,delayed release (Protonix) 40 mg PO DAILY #60 tabs 10/08/24
Home Medication Changes
You are started on antiplatelet medications: Aspirin 81mg and Plavix 75mg daily. You are given a 2 month supply and will need refills.
You are started on Atorvastatin (for cholesterol).
You are started on Protonix daily to help protect the stomach lining while on both Aspirin and Plavix.
Continue Losartan and check your blood pressure daily (90 minutes after medication), report results to your PCP.
Pending Results: No
--- NOTE | 2024-10-08 16:04 | W.DCSUMMARY ---
Discharge Summary
Discharge Data
Date of Admission: 10/04/24
Date of Discharge: 10/08/24
-
Pending Results: Yes
Additional Pending Results:
plasma metanephrines
Hospital Course
Discharging Physician : Dr. Janis Eckert
Disposition : Home with outpatient PT, OT, and ST
Primary care physician : Dr. Josr Perez
Principal Discharge diagnosis : ischemic stroke, left carotid artery stenosis status post Transcarotid left artery revascularization with stent (TCAR)
Hospital Course :
Ms. Deborah Natarajan is a 84 yo woman with hx hypothyroidism, essential HTN who presents to the ER right arm numbness, garbled speech and confusion which resolved after 10 minutes.
Triage vitals significant for hypertension. Patient had a CT of the head as well as a CT angio which showed no acute changes, no bleed, mass effect, mass, dissection. Greater than 70% narrowing at origin of left internal carotid artery. CT
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
She was admitted to medicine with Neurology consulting. MRI showed multiple acute/subacute infarcts in left MCA distribution. With > 70% narrowing left ICA, vascular surgery was consulted and intervention recommended.
Prior to procedure, cardiology was consulted for clearance. She had a nuclear stress test without clear evidence of ischemia. She was deemed to be at a moderate but not prohibitive risk for surgery from a cardiology standpoint.
With finding of carotid body tumor, work-up initiated to rule out hormone secreting tumor. Endocrinology was consulted and plasma metanephrines sent, still pending at time of discharge. 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
high unlikely to be a pheochromocytoma by characteristics. She was started on Labetalol with stable vital signs and cleared for surgery from an Endocrine standpoint.
Patient is s/p TCAR (transcarotid left artery revascularization with stent) on 10/07/24. She tolerated the procedure well and is discharged with new scripts for Aspirin, Plavix and Atorvastatin.
She had reaction to Labetalol with mild confusion/slurred speech that self resolved. This medication is discontinued at [facility] (confirmed OK with Endocrinology, as she is now past surgery). She is told to monitor her BP closely at home and follow up
with her PCP.
Time spent on discharge was 40 minutes.
Important imaging findings :
CT Head
MPRESSION:
1). 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
2). 3.3 cm calcified meningioma over the medial aspect of the right parietal convexity
3). 1 cm partially calcified meningioma in the inferolateral aspect of the right temporal lobe
4). There is mild diffuse cortical atrophy with moderate nonspecific white matter changes as described above.
5). No CT evidence of acute infarct. No intracranial hemorrhage
Head/Neck CTA
IMPRESSION:
1). Moderate partially calcific atherosclerotic plaque in the left carotid bifurcation is associated with approximately 65% stenosis of the left internal carotid artery at its origin and there is an approximately 70% stenosis of the M1 segment of
the left middle cerebral artery. These findings are associated with diminished flow in the M2 and M3 branches of the left middle cerebral artery when compared with the right.
2). There is 3.9 cm in maximal diameter hypervascular mass in the right carotid and parapharyngeal spaces most consistent with carotid body tumor
3). There is 3.3 cm partially calcified meningioma over the medial right parietal convexity and 1 cm partially calcified meningioma in the inferolateral right temporal lobe
4). Small volume partially calcific atherosclerotic plaque in the proximal right internal carotid artery is not associated with significant stenosis
CTA Chest
IMPRESSION:
There is no active cardiopulmonary disease
Specifically, there is no aortic dissection
MRI- 1.). There are multiple areas of acute/subacute infarct measuring up to 3.5 cm in the left middle cerebral artery distribution suggesting embolic infarct
2). There is a 5 cm heterogeneous, densely enhancing mass in the right carotid space and parapharyngeal space most consistent with carotid body tumor
3). 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
MRA- head-There is an approximately 70% stenosis of the M1 segment of the left middle cerebral artery with associated decreased flow in the M2 and 3 branches of the left middle cerebral artery when compared with the right
MRA neck-1.).There is near 70% stenosis of the left internal carotid artery at its origin
2). 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
3). The tumor is associated with medial displacement of the right internal carotid artery but there is no significant stenosis at the right carotid bifurcation or cervical portion of the right internal carotid artery
Barium swallow-unremarkable except for incidental cricopharyngeal muscle spasm
Echo 10/04/2024-LV size and systolic function. Ejection fraction 5060 to 65%. Grade 1 diastolic dysfunction. Mild MR trace TR, pulmonary artery pressure 20 to 25 mmHg, moderate AAS
CT A/P
IMPRESSION:
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 Consider correlation with lab values for functionality.
Cholelithiasis.
Barium contrast is present throughout the colon with associated streak artifact.
Procedure findings :
10/07/24
Procedure:
1. Open exposure of left common carotid artery.
2. Transcarotid left artery revascularization with stent (TCAR) with Enroute 9mm x 40mm self-expanding stent, and utilizing Enroute [employer] flow reversal intraprocedural neuro protection.
3. Intraoperative EEG/SSEP monitoring.
4. Supervision and interpretation
CPT code 54167, [facility] TCAR #[id number]
Discharge Plan
-
Patient Disposition: Home (Routine Discharge)
Discharge Diagnosis/Procedures: ischemic stroke, left carotid artery stenosis status post Transcarotid left artery revascularization with stent (TCAR)
Diet: Low Cholesterol
Activity: As tolerated
Driving Restrictions: As prior to admission
Bathing Restrictions: None
Activity Restrictions/Additional Instructions:
If you experience severe constant headache, weakness to an arm or leg, change in vision, trouble speaking or any stroke-like symptom, call 911 immediately
If you experience swelling, increased bruising, drainage from neck site, or fever, please call the office
Referrals:
Josr Perez MD [Family Provider] - in less than 1 week
Elsa Hernández MD [Consulting Staff] - in one to two weeks
Nubia Chong CRNP [Specified Professional Personl] - 10/22/24 9:15 am (Vascular surgery office follow-up)
Additional Discharge Medication Instructions: You are started on antiplatelet medications: Aspirin 81mg and Plavix 75mg daily. You are given a 2 month supply and will need refills.
You are started on Atorvastatin (for cholesterol).
You are started on Protonix daily to help protect the stomach lining while on both Aspirin and Plavix.
Continue Losartan and check your blood pressure daily (90 minutes after medication), report results to your PCP.
Prescriptions:
New
atorvastatin 80 mg Tablet
80 mg PO QPM Qty: 60 0RF
clopidogrel 75 mg Tablet
75 mg PO DAILY Qty: 60 0RF
aspirin 81 mg Tablet,Delayed Release (Dr/Ec)
81 mg PO DAILY Qty: 60 0RF
pantoprazole [Protonix] 40 mg tablet,delayed release (DR/EC)
40 mg PO DAILY Qty: 60 0RF
Continued
Levothyroxine Sodium 50 mcg
1 tab PO DAILY AT 0700
losartan 50 mg Tablet
50 mg PO DAILY
Discharge Orders:
Discharge Patient (As Directed); Ordered 10/08/24
Ordered By: Janis Eckert
Discharge Date and Time
Print Language: FRISIAN
[2024-10-08] MEDS: LIPITOR 80 MG PO (16:48)
--- NOTE | 2024-10-08 17:02 | PTCARENOTE ---
Discharge paperwork gone over with patient and patient's daughter. All questions answered. Medications requiring clarification- Plavix, Lipitor and Protonix. PT/OT/EVENTS SPECIALIST scripts provided. Vitals stable. Leads/wires and iv access removed. Patient
transported via wheelchair to car.
[2024-10-09 02:55] LABS: 24 Hour Urine Total Volume Random mL; Creatinine, Urine per Volume 178 mg/dL; Metanephrine, Urine 164 ug/L; Metanephrine/Creatinine Ratio 92 ug/g CRT (0-300); Normetanephrine, Urine 543 ug/L; Normetanephrine/Creatinine Rat 305 ug/g CRT (0-400); Urine Collection Length Random hr
[2024-10-10 18:08] LABS: Dopamine, Urine 549 ug/L; Dopamine/Creatinine Ratio 308 ug/g CRT (0-250); Epinephrine, Urine 9 ug/L; Epinephrine/Creatinine Ratio 5 ug/g CRT (0-20); Norepinephrine, Urine 93 ug/L; Norepinephrine/Creatinine Rat 52 ug/g CRT (0-45)
== END 2024-10-08 16:45 | disposition home or self-care (01) | DRG 34 ==
LOC: ICU 10:00
PROVIDERS: Hospitalist; Internal Medicine; Nurse Practitioner; Nurse Practitioner Acute Care; ADMITTING PHYSICIAN Internal Medicine; ATTENDING PHYSICIAN Student in an Organized Health Care Education/Training Program; CONSULT PHYSICIAN Internal Medicine Cardiovascular Disease; CONSULT PHYSICIAN Internal Medicine Critical Care Medicine; CONSULT PHYSICIAN Psychiatry & Neurology Neurology; EMERGENCY PHYSICIAN Emergency Medicine; FAMILY PHYSICIAN Internal Medicine; OTHER PHYSICIAN Internal Medicine Endocrinology, Diabetes & Metabolism; OTHER PHYSICIAN Surgery Vascular Surgery
PROC: X2AJ336 Cerebral Embolic Filtration, Extracorporeal Flow Reversal Circuit from Left Common Carotid Artery, Percutaneous Approach, New Technology Group 6 (ICD-10-PCS; 2024-10-07)
PROC: 037L3DZ Dilation of Left Internal Carotid Artery with Intraluminal Device, Percutaneous Approach (ICD-10-PCS; 2024-10-07)
DX: I63.232 Cerebral infarction due to unspecified occlusion or stenosis of left carotid arteries (principal); I63.412 Cerebral infarction due to embolism of left middle cerebral artery; I5A Non-ischemic myocardial injury (non-traumatic); E03.9 Hypothyroidism, unspecified; I10 Essential (primary) hypertension; R13.10 Dysphagia, unspecified; E78.00 Pure hypercholesterolemia, unspecified; D44.6 Neoplasm of uncertain behavior of carotid body; R07.89 Other chest pain; I16.0 Hypertensive urgency; R41.0 Disorientation, unspecified; T44.8X5A Adverse effect of centrally-acting and adrenergic-neuron-blocking agents, initial encounter; R82.998 Other abnormal findings in urine; D32.0 Benign neoplasm of cerebral meninges; R47.01 Aphasia; K21.9 Gastro-esophageal reflux disease without esophagitis; G83.21 Monoplegia of upper limb affecting right dominant side; I08.0 Rheumatic disorders of both mitral and aortic valves; E53.8 Deficiency of other specified B group vitamins; R47.1 Dysarthria and anarthria; D69.6 Thrombocytopenia, unspecified; D35.02 Benign neoplasm of left adrenal gland; Z86.16 Personal history of COVID-19
CPT/HCPCS: 37215; 70450; 70496; 70498; 70544; 70548; 70553; 71275; 74178; 74210; 78452; 80048; 80053; 80061; 81003; 81015; 82384; 82607; 82728; 82746; 82962; 83835; 84443; 84484; 85025; 85027; 85379; 85610; 85652; 85730; 86850; 86900; 86901; 87077; 87086; 87186; 92507; 92523; 92526; 92610; 93005; 93017; 93306; 95938; 95941; 95955; 96374; 97161; 97164; 97166; 97530; 97535; 99291; A9500; A9585; C1725; C1769; C1876; C1884; C1894; J2785; Q9967

== ENCOUNTER → 2024-11-26 08:36 | Outpatient (REF) | payer OTHER, SELFPAY | LOC: RAD 08:36 | PROVIDERS: ATTENDING PHYSICIAN Registered Nurse; FAMILY PHYSICIAN Internal Medicine | DX: I65.22 Occlusion and stenosis of left carotid artery (principal) | CPT/HCPCS: 93880 ==

== ENCOUNTER → 2025-01-18 08:11 | Outpatient (REF) | payer OTHER, SELFPAY | LOC: RAD 08:11 | PROVIDERS: ATTENDING PHYSICIAN Surgery Vascular Surgery; FAMILY PHYSICIAN Internal Medicine | DX: I65.22 Occlusion and stenosis of left carotid artery (principal) | CPT/HCPCS: 70496; 70498; Q9967 ==

== ENCOUNTER → 2025-06-01 14:18 | Outpatient (REF) | payer OTHER, SELFPAY | LOC: RAD 14:18 | PROVIDERS: ATTENDING PHYSICIAN Internal Medicine | DX: R42 Dizziness and giddiness (principal); R20.0 Anesthesia of skin; R20.2 Paresthesia of skin; G44.85 Primary stabbing headache | CPT/HCPCS: 70450 ==

== ENCOUNTER → 2025-08-03 07:44 | Outpatient (REF) | payer OTHER, SELFPAY | LOC: RAD 07:44 | PROVIDERS: ATTENDING PHYSICIAN Surgery Vascular Surgery; FAMILY PHYSICIAN Internal Medicine | DX: I65.22 Occlusion and stenosis of left carotid artery (principal); D44.6 Neoplasm of uncertain behavior of carotid body | CPT/HCPCS: 70496; 70498; Q9967 ==

== ENCOUNTER → 2025-11-03 08:51 | Outpatient (REF) | payer OTHER, SELFPAY | LOC: HWRAD 08:51 | PROVIDERS: ATTENDING PHYSICIAN Internal Medicine | DX: R14.2 Eructation (principal); R10.13 Epigastric pain; K59.09 Other constipation | CPT/HCPCS: 74150 ==